=== PATIENT | male | born 1950 | race Caucasian/White ===

== ENCOUNTER → 2017-10-18 07:35 | Outpatient (CLI) | payer MEDICARE, OTHER, SELFPAY ==
--- NOTE | 2017-10-18 07:39 | US_ITS ---
ULTRASOUND ABDOMEN LIMITED HISTORY: Elevated liver enzymes ITS.REASON: ELEVATED LIVER ENZYMES ORDERING PHYSICIAN: Renee Cohen PATIENT AGE: 67 years COMPARISON: None FINDINGS: PANCREAS: Unremarkable. No obvious mass or abnormal fluid collection. No ductal dilatation LIVER: No focal liver lesions demonstrated. Homogeneous echogenicity. No intrahepatic biliary ductal dilatation evident RIGHT KIDNEY: No hydronephrosis. There is a 2 cm benign-appearing right renal cyst lung upper pole GALLBLADDER: No gallstones, gallbladder wall thickening, pericholecystic fluid, or biliary dilatation. IMPRESSION: Negative gallbladder/right upper quadrant ultrasound
== END ==
PROVIDERS: Family Provider Internal Medicine Adolescent Medicine; PCP Internal Medicine Adolescent Medicine; Visit Provider Nurse Practitioner Family
DX: R74.8 Abnormal levels of other serum enzymes (principal)
CPT/HCPCS: 76705

== ENCOUNTER → 2017-12-27 12:43 | Outpatient (CLI) | payer MEDICARE, OTHER, SELFPAY ==
--- NOTE | 2017-12-27 13:08 | US_ITS ---
US thyroid HISTORY: ITS.REASON: HYROIDITIS ORDERING PHYSICIAN: Kike Jasmine MD PATIENT AGE: 67 years COMPARISON: None FINDINGS: Right lobe: 3.3 x 1.3 x 2.1 cm. Homogeneous echogenicity. No nodules Left lobe: 3.3 x 1.1 x 1.3 cm. Homogeneous echogenicity. No nodules apparent Isthmus: Unremarkable IMPRESSION: Unremarkable thyroid ultrasound
== END ==
PROVIDERS: Family Provider Internal Medicine Adolescent Medicine; PCP Internal Medicine Adolescent Medicine; Visit Provider Internal Medicine Adolescent Medicine
DX: E06.3 Autoimmune thyroiditis (principal); E03.8 Other specified hypothyroidism
CPT/HCPCS: 76536

== ENCOUNTER 2019-01-05 01:21 | Observation (INO) ==
[2019-01-05 02:08] LABS: Basophils % 0.3 % (0.1-2.0); Eosinophils # 0.1 K/mm3 (0.0-0.4); Eosinophils % 0.9 % (0.1-12.0); Hematocrit 49.2 % (42.0-52.0); Hemoglobin 17.1 g/dL (14.1-18.0); Lymphocytes # 0.4 K/mm3 (0.7-4.5); Lymphocytes % 4.3 % (10-50); Mean Corpuscular HGB Conc 34.8 g/dL (31.8-35.4); Mean Corpuscular Hemoglobin 32.1 pg (27.0-31.2); Mean Corpuscular Volume 92.2 fl (80-94); Mean Platelet Volume 6.8 fl (7.4-10.4); Monocytes # 0.3 K/mm3 (0.1-1.0); Monocytes % 3.2 % (1.7-9.3); Neutrophils # 8.3 K/mm3 (1.8-7.8); Neutrophils % 91.3 % (37.0-80.0); Platelet Count 298 K/mm3 (142-424); Red Blood Count 5.34 M/mm3 (4.60-6.20); Red Cell Distribution Width 13.1 % (11.5-17.5); White Blood Count 9.1 K/mm3 (4.8-10.8)
--- NOTE | 2019-01-05 02:13 | Emergency Department Note ---
ED Disposition Clinical Impression: Vomiting, persistent, in adult, Renal insufficiency Disposition: Admitted as Observation Condition on Discharge: Fair Instructions: DI for Diarrhea and Traveler's Diarrhea -- Adult, DI for Diarrhea and Traveler's Diarrhea -- Child, DI for Nausea -- Adult, DI for Nausea -- Child Referrals: Renee Cohen APRN [Primary Care Provider] - - Critical Care Critical Care Time: No Attestation: On 01/05/19, the high probability of a clinically significant, sudden or life threatening deterioration of the following system(s) required my full and direct attention, intervention and personal management. The time I documented below is in addition to time spent performing reported procedures but includes the following listed in this critical care notation. Medical Decision Making - Medical Records Medical records reviewed: Yes: I reviewed the patient's medical records. - John Inquiry Pt receiving controlled substance: No Vital Signs: 01/05/19 01:43 Temperature 99.2 F Temperature Source Oral Pulse Rate [Right] 114 H Respiratory Rate 18 Blood Pressure [Right Arm] 135/84 Blood Pressure Mean [Right Arm] 101 Blood Pressure Source [Right Arm] Automatic Cuff Blood Pressure Position [Right Arm] Supine 02 Sat by Pulse Oximetry 94 L Oxygen Delivery Method Room Air - Lab Data Lab results reviewed: Yes: I reviewed the patient's lab results. Lab Results 01/05/19 01:30: WBC 9.1, RBC 5.34, Hgb 17.1, Hct 49.2, MCV 92.2, MCH 32.1 H, MCHC 34.8, RDW 13.1, Plt Count 298, MPV 6.8 L, Neut % (Auto) 91.3 H, Lymph % (Auto) 4.3 L, [place] % (Auto) 3.2, Eos % (Auto) 0.9, Baso % (Auto) 0.3, Neut # (Auto) 8.3 H, Lymph # (Auto) 0.4 L, [place] # (Auto) 0.3, Eos # (Auto) 0.1, Baso # (Auto) 0.0, Total Counted 100, Neutrophils % (Manual) 77 H, Band Neutrophils % 14.0 H, Lymphocytes % (Manual) 7 L, Eosinophils % (Manual) 2, Platelet Estimate Normal, RBC Morphology Normal, ESR 19 01/05/19 01:30: Sodium 140, Potassium 4.0, Chloride 103, Carbon Dioxide 23, Anion Gap 18.0 H, BUN 21 H, Creatinine 1.38 H, Estimated Creat Clear 55, Estimated GFR 51 L, Est GFR ( Amer) 62, Glucose 140 H, Calcium 8.6, Total Bilirubin 2.0 H, AST 28, ALT 35, Alkaline Phosphatase 89, C-Reactive Protein 4.0 H, Total Protein 7.7, Albumin 3.6, Globulin 4.1 H, Albumin/Globulin Ratio 0.9 L, Amylase 61, Lipase 113 01/05/19 01:30: Lactate 2.3 H 01/05/19 02:15: Influenza Type A Ag Negative, Influenza Type B Ag Negative 01/05/19 02:15: Group A Strep Rapid Negative Result diagrams: 01/05/19 01:30 01/05/19 01:30 Orders (Tests/Meds): ED MEDICATIONS Generic Name Dose Route Start Last Admin Trade Name Freq PRN Reason Stop Dose Admin Sodium Chloride 1,000 mls @ 999 mls/hr 01/05/19 02:00 01/05/19 02:00 Sod Chlor 0.9% 1000ml Bag IV 01/05/19 03:00 999 mls/hr .Q1H1M OUMOU Administration Sodium Chloride 1,000 mls @ 999 mls/hr 01/05/19 03:45 01/05/19 03:34 Sod Chlor 0.9% 1000ml Bag IV 01/05/19 04:45 999 mls/hr .Q1H1M OUMOU Administration Sodium Chloride 10 ml 01/05/19 01:51 Saline Flush 10ml Syringe IV 01/05/19 13:51 NEEDED PRN Maintain IV Site Discontinued Medications Generic Name Dose Route Start Last Admin Trade Name Freq PRN Reason Stop Dose Admin Famotidine 20 mg 01/05/19 02:23 01/05/19 02:31 Pepcid 20mg/2ml Vial IV 01/05/19 02:24 20 mg ONCE ONE Administration Metoclopramide HCl 10 mg 01/05/19 02:23 01/05/19 02:31 Reglan 10mg/2ml Vial IVP 01/05/19 02:24 10 mg ONCE ONE Administration Ondansetron HCl 4 mg 01/05/19 01:51 01/05/19 02:00 Zofran 4mg/2ml Vial IV 01/05/19 01:52 4 mg ONCE ONE Administration Ondansetron HCl 4 mg 01/05/19 02:32 01/05/19 02:33 Zofran 4mg/2ml Vial IV 01/05/19 02:33 4 mg ONCE ONE Administration ORDERS Category Date Time Status CT abdomen pelvis wo con Stat Cat Scan 01/05/19 01:49 Taken Urinalysis and Microscopic Stat Lab 01/05/19 01:49 Ordered Blood Culture Stat Micro 01/05/19 01:30 Received Strep Screen Confirmation Stat Micro 01/05/19 02:15 Received - CT Data CT Scan: Abdomen, Pelvis Time Received: 03:[address] Reviewed: Yes: I have viewed the radiologist's interpretation Preliminary Findings: Abnormal - Reevaluation(s) Time: 03:58 Reevaluation #1: still weak and unable to ambulate and still with nausea Nausea/Vomiting/Diarrhea HPI - General Chief complaint: Nausea/Vomiting/Diarrhea Stated complaint: Vomiting,Chills,Fever Time Seen by Provider: 01/05/19 02:13 Mode of Arrival: Ambulatory Source of Information: Patient, Spouse, Medical Record Limitations: No Limitations Description of Symptoms (Recalled from ER Triage Doc. by RN): Pt started vomiting and chills at about 2100 tonight - History of Present Illness HPI Narrative: since 2129 has chills and vomiting w/o diarrhea or cough and no known exposure MD complaint: nausea, vomiting, abdominal pain Onset (ago): hour(s) Associated Abdominal Pain: Yes Location of pain: diffuse Severity: moderate Associated symptoms: denies other symptoms - Related Data Home Medications Medication Instructions Recorded Confirmed Levothyroxine Sodium [Synthroid 75 mcg PO DAILY 01/05/19 01/05/19 75mcg (0.075mg) tablet] predniSONE [Prednisone 5mg 5 mg PO DAILY 01/05/19 01/05/19 Tab] Allergies Allergy/AdvReac Type Severity Reaction Status Date / Time tolmetin [From Tolectin] Allergy Unknown I-HIVES Verified 01/05/19 01:48 [facility] History - Hepatitis A Screen Drug use history?: No High risk sexual behaviors?: No History of sexually transmitted infection?: No Currently employed?: No Childcare worker?: No Do you have indoor plumbing?: Yes Do you have electricity?: Yes Attestation statement:: This patient has been screened for Hepatitis A risk factors. I have reviewed the patient's past medical history: Yes - Social History Alcohol Intake: current Alcohol Intake Frequency:: holidays/special occasions only Occupational Status: employed - Psychiatric History Expresses thoughts of harming self/others: None Suicide Plan Description: No Plan ROS Obtained: Yes All systems reviewed & no additional complaints - Constitutional Constitutional: Reports chills, Denies fever(s) - Eyes Eyes: Denies change in vision - ENT Ears, Nose, Mouth, and Throat: Denies sore throat - Cardiovascular Cardiovascular: Denies chest pain - Respiratory Respiratory: No cough - Gastrointestinal Gastrointestingal: Reports: abdominal pain, nausea, vomiting. Denies: diarrhea, vomiting blood - Genitourinary Male Genitourinary: Denies hematuria - Musculoskeletal Musculoskeletal: Denies joint pain, Denies neck pain - Integumentary/Breasts Skin/Breast: Denies rash - Neurologic Neurologic: Denies seizure-like activity Physical Exam - General General appearance: alert - Head Head exam: normocephalic - Eye Eye exam: Present: PERRL, EOMI. Absent: scleral icterus - ENT ENT exam: Present: mucous membranes dry - Neck Neck exam: Present: trachea midline - Respiratory Respiratory exam: Present: normal lung sounds bilaterally. Absent: respiratory distress - Cardiovascular Cardiovascular exam: Present: tachycardia, systolic murmur, +S4 - Abdominal Exam Abdominal exam: Present: soft. Absent: tenderness - Extremities Exam Extremities exam: Present: full ROM - Neurological Exam Neurological exam: Present: alert, oriented X3, CN II-XII intact - Psychiatric Psychiatric exam: Present: normal affect - Skin Skin exam: Absent: rash
[2019-01-05 02:23] LABS: Albumin Level 3.6 gm/dL (3.4-5.0); Albumin/Globulin Ratio 0.9 (1.1-1.8); Calcium 8.6 mg/dL (8.5-10.1); Eosinophils % 2 % (0-3); Globulin 4.1 gm/dl (1.3-3.2); Lymphocytes % 7 % (10-50); Neutrophils % 77 % (42-76); RBC Morphology Normal; Total Cells Counted 100; Total Protein,Serum 7.7 gm/dL (6.4-8.2)
[2019-01-05 02:54] LABS: Erythrocyte Sedimentation Rate 19 mm/hr (0-20)
[2019-01-05 04:38] LABS: Microscopic, Urine URINE MICROSCOPIC (MICROSCOPIC)
[2019-01-05 04:40] LABS: Appearance,Urine CLEAR (Clear); Bilirubin,Urine Negative (Negative); Blood, Urine Negative (Negative); Color,Urine YELLOW (Yellow); Glucose,Urine (UA) Negative (Negative); Ketones,Urine TRACE (Negative); Leukocyte Esterase,Urine Negative (Negative); Protein,Urine Negative (Negative); Specific Gravity, Urine 1.015 (1.005-1.030); Urobilinogen,Urine 0.2 EU/dl (0.2)
[2019-01-05 04:45] LABS: Amorphous Sediment,Urine Trace /lpf
[2019-01-05 05:53] LABS: Basophils % 0.2 % (0.1-2.0); Eosinophils # 0.1 K/mm3 (0.0-0.4); Eosinophils % 1.2 % (0.1-12.0); Hematocrit 43.6 % (42.0-52.0); Lymphocytes # 0.3 K/mm3 (0.7-4.5); Lymphocytes % 5.1 % (10-50); Mean Corpuscular HGB Conc 33.7 g/dL (31.8-35.4); Mean Corpuscular Hemoglobin 31.1 pg (27.0-31.2); Mean Corpuscular Volume 92.3 fl (80-94); Mean Platelet Volume 6.6 fl (7.4-10.4); Monocytes # 0.3 K/mm3 (0.1-1.0); Monocytes % 4.3 % (1.7-9.3); Neutrophils % 89.2 % (37.0-80.0); Platelet Count 246 K/mm3 (142-424); Red Blood Count 4.73 M/mm3 (4.60-6.20); Red Cell Distribution Width 13.2 % (11.5-17.5); White Blood Count 6.7 K/mm3 (4.8-10.8)
[2019-01-05 05:57] LABS: Hemoglobin 14.7 g/dL (14.1-18.0)
[2019-01-05 06:10] LABS: Anion Gap 13.7 mEq/L (5-15); Blood Urea Nitrogen 19 mg/dL (7-18); Calcium 7.9 mg/dL (8.5-10.1); Carbon Dioxide 24 mmol/L (21.0-32.0); Chloride 107 mmol/L (98-107); Potassium 3.7 mmoL/L (3.5-5.1); Sodium 141 mmol/L (136-145)
[2019-01-05 06:11] LABS: Glucose 104 mg/dL (74-106)
--- NOTE | 2019-01-05 08:45 | Pharmacy Consult Notes ---
[facility] Pharmacy VTE Monitoring - Patient Demographics Admission date: 01/05/19 Report Date: 01/05/19 Time: 08:44 Allergies/Adverse Reactions: Patient Allergies tolmetin [From Tolectin] Allergy (Unknown, Verified 01/05/19 04:37) I-HIVES Height: 1.73 m Weight: 79.124 kg Patient Problems: Current Active Problems Vomiting, persistent, in adult (Acute) Renal insufficiency (Acute) - VTE Risk Labs: VTE Related Lab Results Hgb 14.7 g/dL (14.1-18.0) D 01/05/19 05:40 Hct 43.6 % (42.0-52.0) 01/05/19 05:40 Plt Count 246 K/mm3 (142-424) 01/05/19 05:40 BUN 19 mg/dL (7-18) H 01/05/19 05:40 Creatinine 1.29 mg/dL (0.70-1.30) 01/05/19 05:40 Estimated Creat Clear 60 mL/min (50-200) 01/05/19 05:40 Was VTE Risk Assessment Performed: Yes VTE Score: 1 VTE Risk Level: Very Low Risk - Prophylaxis VTE Prophylaxis Ordered?: Yes Types of VTE Prophylaxis: TEDS Knee High ([place] ORDER PLACED)
--- NOTE | 2019-01-05 08:56 | H&P/Discharge Summary ---
General - General Admission date:: 01/05/19 Discharge date: 01/05/19 *Admission Date: 01/05/19 *Chief complaint: Nausea/vomiting *History of present illness: 68-year-old white male with significant arthritis who recently has been taking quite a lot of ibuprofen, while attending rheumatology clinic in [place], who came to the emergency department late yesterday evening with intractable vomiting. In spite of intravenous antiemetics and fluids he was unable to keep any liquids down and was admitted overnight for observation. [facility] History I have reviewed the patient's past medical history: Yes Medical History: Denies:: Cancer, Diabetes Mellitus Type 1, Diabetes Mellitus Type 2, MRSA *Have you ever received a pneumonia vaccine?: No *Have you received a flu vaccine this season?: No Other Medical History: Reports: Arthritis, Thyroid Disease Other Surgeries: Yes: Sinus Surgery Amputation: No Fractures: No - *Social History Educational Level: Attended College Alcohol Intake: current Alcohol Intake Frequency:: holidays/special occasions only *Occupational Status:: employed Household Members: spouse *Travel in the last 8 weeks: None - Psychiatric History Expresses thoughts of harming self/others: None Suicide Plan Description: No Plan Family Hx:: Coronary Artery Disease, Diabetes, Heart Attack, Hyperlipidemia, Hypertension Review of Systems - Review of Systems Review of systems:: pertinent systems reviewed and negative unless documented below - Constitutional Reports body ache(s), Denies anorexia, Denies chills - Eyes Denies blind spots, Denies blurry vision - ENT Denies abnormal hearing, Denies bleeding gums, Denies change in voice - *Cardiovascular Denies chest pain, Denies chest pain at rest, Denies chest pain with activity, Denies excessive sweating, Denies shortness of breath - *Respiratory Denies change in phlegm color, Denies chest congestion, Denies cough, Denies shortness of breath - *Gastrointestinal Reports nausea, Reports vomiting, Denies abdominal pain, Denies belching, Denies bloating, Denies change in bowel habits, Denies change in stools, Denies coffee ground vomit, Denies constipation, Denies difficulty swallowing, Denies feeling full early, Denies excessive passing of gas, Denies vomiting blood, Denies bright, red blood in stools, Denies black, tarry stools - *Genitourinary Denies difficulty urinating - *Musculoskeletal Reports joint pain, Denies abnormal walking, Denies decreased muscle mass - Integumentary/Breasts Denies acne, Denies hair loss, Denies change in skin color, Denies changing lesions - *Neurologic Denies abnormal walking, Denies seizure-like activity - Psychiatric Denies abnormal sleep pattern - Endocrine Denies cold intolerance, Denies excessive sweating, Denies flushing Exam Vital signs and Labs for Last 24 Hours: Temp Pulse Resp BP Pulse Ox 98.0 F 75 18 120/63 95 01/05/19 08:00 01/05/19 08:00 01/05/19 08:00 01/05/19 08:00 01/05/19 08:00 Laboratory Results - last 24 hr 01/05/19 01:30: WBC 9.1, RBC 5.34, Hgb 17.1, Hct 49.2, MCV 92.2, MCH 32.1 H, MCHC 34.8, RDW 13.1, Plt Count 298, MPV 6.8 L, Neut % (Auto) 91.3 H, Lymph % (Auto) 4.3 L, [place] % (Auto) 3.2, Eos % (Auto) 0.9, Baso % (Auto) 0.3, Neut # (Auto) 8.3 H, Lymph # (Auto) 0.4 L, [place] # (Auto) 0.3, Eos # (Auto) 0.1, Baso # (Auto) 0.0, Total Counted 100, Neutrophils % (Manual) 77 H, Band Neutrophils % 14.0 H, Lymphocytes % (Manual) 7 L, Eosinophils % (Manual) 2, Platelet Estimate Normal, RBC Morphology Normal, ESR 19 01/05/19 01:30: Sodium 140, Potassium 4.0, Chloride 103, Carbon Dioxide 23, Anion Gap 18.0 H, BUN 21 H, Creatinine 1.38 H, Estimated Creat Clear 55, Estimated GFR 51 L, Est GFR ( Amer) 62, Glucose 140 H, Calcium 8.6, Total Bilirubin 2.0 H, AST 28, ALT 35, Alkaline Phosphatase 89, C-Reactive Protein 4.0 H, Total Protein 7.7, Albumin 3.6, Globulin 4.1 H, Albumin/Globulin Ratio 0.9 L, Amylase 61, Lipase 113 01/05/19 01:30: Lactate 2.3 H 01/05/19 02:15: Influenza Type A Ag Negative, Influenza Type B Ag Negative 01/05/19 02:15: Group A Strep Rapid Negative 01/05/19 04:27: Urine Color Yellow, Urine Appearance Clear, Urine pH 7.0, Ur Specific [place] 1.015, Urine Protein Negative, Urine Glucose (UA) Negative, Urine Ketones Trace, Urine Blood Negative, Urine Nitrate Negative, Urine Bilirubin Negative, Urine Urobilinogen 0.2, Ur Leukocyte Esterase Negative, U rine WBC 3-5, Amorphous Sediment Trace 01/05/19 05:40: WBC 6.7 D, RBC 4.73, Hgb 14.7 D, Hct 43.6, MCV 92.3, MCH 31.1, MCHC 33.7, RDW 13.2, Plt Count 246, MPV 6.6 L, Neut % (Auto) 89.2 H, Lymph % (Auto) 5.1 L, [place] % (Auto) 4.3, Eos % (Auto) 1.2, Baso % (Auto) 0.2, Neut # ( Auto) 6.0, Lymph # (Auto) 0.3 L, [place] # (Auto) 0.3, Eos # (Auto) 0.1, Baso # (Auto) 0.0 01/05/19 05:40: Sodium 141, Potassium 3.7, Chloride 107, Carbon Dioxide 24, Anion Gap 13.7, BUN 19 H, Creatinine 1.29, Estimated Creat Clear 60, Estimated GFR 55 L, Est GFR ( Amer) 67, Glucose 104 D, Calcium 7.9 L, Troponin I < 0.02 01/05/19 05:40: Lactate 1.1 I & O for Last 24 hours: Intake & Output 01/02/19 01/03/19 01/04/19 01/05/19 11:59 11:59 11:59 11:59 Intake Total 1999 Balance 1999 Weight 174 lb 7 oz - Constitutional no acute distress, average body habitus - *Routine HEENT Exam Head: Present: normocephalic, atraumatic Eye: Present: EOMI, PERRL, conjunctivae pink ENT: Present: mucous membranes moist, oropharynx clear - *Routine Neck Exam Present: supple, full ROM. Absent: JVD, carotid bruit - Routine Chest/Breast/Axilla Exam Chest wall: Absent: tenderness, mass - *Routine Respiratory Exam Present: CTA bilaterally. Absent: accessory muscle use, patient mechanically ventilated, prolonged expiratory phase - *Routine Cardiovascular Exam Present: RRR, Normal S1, Normal S2. Absent: murmur - *Routine Abdominal Exam Present: soft, normoactive bowel sounds. Absent: tenderness, distended - *Routine Extremities Exam Present: full ROM. Absent: cyanosis, clubbing, edema - Routine Back/Spine/Pelvis Exam Back/Spine: Absent: CVA tenderness - *Routine Skin Exam Present: intact. Absent: cyanosis, erythema - *Routine Neurological Exam Present: alert, oriented X3, CN II-XII intact Hospital Course Hospital Course: Patient was admitted observation, placed on IV fluids and antiemetics through the night. He did very nicely, this morning felt much better, and was given a trial of clear liquids advancing to low-fat diet and tolerated this well. He will be discharged home with p.o. antiemetics available if he has any residual problems what appears to be a gastritis/gastroenteritis problem, prescribe Celebrex hopefully to help his osteoarthritis pain without the stomach irritation of ibuprofen. He will follow-up with our office as scheduled and with rheumatology as scheduled as well. Results Labs on day of discharge: Labs from last 24 hours 01/05/19 01/05/19 01/05/19 05:40 05:40 05:40 WBC 6.7 D RBC 4.73 Hgb 14.7 D Hct 43.6 MCV 92.3 MCH 31.1 MCHC 33.7 RDW 13.2 Plt Count 246 MPV 6.6 L Neut % (Auto) 89.2 H Lymph % (Auto) 5.1 L [place] % (Auto) 4.3 Eos % (Auto) 1.2 Baso % (Auto) 0.2 Neut # (Auto) 6.0 Lymph # (Auto) 0.3 L [place] # (Auto) 0.3 Eos # (Auto) 0.1 Baso # (Auto) 0.0 Total Counted Neutrophils % (Manual) Band Neutrophils % Lymphocytes % (Manual) Eosinophils % (Manual) Platelet Estimate RBC Morphology ESR Sodium 141 Potassium 3.7 Chloride 107 Carbon Dioxide 24 Anion Gap 13.7 BUN 19 H Creatinine 1.29 Estimated Creat Clear 60 Estimated GFR 55 L Est GFR ( Amer) 67 Glucose 104 D Lactate 1.1 Calcium 7.9 L Total Bilirubin AST ALT Alkaline Phosphatase Troponin I < 0.02 C-Reactive Protein Total Protein Albumin Globulin Albumin/Globulin Ratio Amylase Lipase Urine Color Urine Appearance Urine pH Ur Specific [place] Urine Protein Urine Glucose (UA) Urine Ketones Urine Blood Urine Nitrate Urine Bilirubin Urine Urobilinogen Ur Leukocyte Esterase Urine WBC Amorphous Sediment Influenza Type A Ag Influenza Type B Ag Group A Strep Rapid 01/05/19 01/05/19 01/05/19 04:27 02:15 02:15 WBC RBC Hgb Hct MCV MCH MCHC RDW Plt Count MPV Neut % (Auto) Lymph % (Auto) [place] % (Auto) Eos % (Auto) Baso % (Auto) Neut # (Auto) Lymph # (Auto) [place] # (Auto) Eos # (Auto) Baso # (Auto) Total Counted Neutrophils % (Manual) Band Neutrophils % Lymphocytes % (Manual) Eosinophils % (Manual) Platelet Estimate RBC Morphology ESR Sodium Potassium Chloride Carbon Dioxide Anion Gap BUN Creatinine Estimated Creat Clear Estimated GFR Est GFR ( Amer) Glucose Lactate Calcium Total Bilirubin AST ALT Alkaline Phosphatase Troponin I C-Reactive Protein Total Protein Albumin Globulin Albumin/Globulin Ratio Amylase Lipase Urine Color Yellow Urine Appearance Clear Urine pH 7.0 Ur Specific [place] 1.015 Urine Protein Negative Urine Glucose (UA) Negative Urine Ketones Trace Urine Blood Negative Urine Nitrate Negative Urine Bilirubin Negative Urine Urobilinogen 0.2 Ur Leukocyte Esterase Negative Urine WBC 3-5 Amorphous Sediment Trace Influenza Type A Ag Negative Influenza Type B Ag Negative Group A Strep Rapid Negative 01/05/19 01/05/19 01/05/19 01:30 01:30 01:30 WBC 9.1 RBC 5.34 Hgb 17.1 Hct 49.2 MCV 92.2 MCH 32.1 H MCHC 34.8 RDW 13.1 Plt Count 298 MPV 6.8 L Neut % (Auto) 91.3 H Lymph % (Auto) 4.3 L [place] % (Auto) 3.2 Eos % (Auto) 0.9 Baso % (Auto) 0.3 Neut # (Auto) 8.3 H Lymph # (Auto) 0.4 L [place] # (Auto) 0.3 Eos # (Auto) 0.1 Baso # (Auto) 0.0 Total Counted 100 Neutrophils % (Manual) 77 H Band Neutrophils % 14.0 H Lymphocytes % (Manual) 7 L Eosinophils % (Manual) 2 Platelet Estimate Normal RBC Morphology Normal ESR 19 Sodium 140 Potassium 4.0 Chloride 103 Carbon Dioxide 23 Anion Gap 18.0 H BUN 21 H Creatinine 1.38 H Estimated Creat Clear 55 Estimated GFR 51 L Est GFR ( Amer) 62 Glucose 140 H Lactate 2.3 H Calcium 8.6 Total Bilirubin 2.0 H AST 28 ALT 35 Alkaline Phosphatase 89 Troponin I C-Reactive Protein 4.0 H Total Protein 7.7 Albumin 3.6 Globulin 4.1 H Albumin/Globulin Ratio 0.9 L Amylase 61 Lipase 113 Urine Color Urine Appearance Urine pH Ur Specific [place] Urine Protein Urine Glucose (UA) Urine Ketones Urine Blood Urine Nitrate Urine Bilirubin Urine Urobilinogen Ur Leukocyte Esterase Urine WBC Amorphous Sediment Influenza Type A Ag Influenza Type B Ag Group A Strep Rapid DS: Diagnosis - Discharge Diagnosis (1) Renal insufficiency Status: Resolved (2) Vomiting, persistent, in adult Status: Resolved Discharge Medications - Medications for Discharge Home Medication List at Discharge: New Celecoxib [Celebrex 200mg cap] 200 mg PO BID #60 cap Promethazine HCl [Phenergan 12.5mg tablet] 12.5 mg PO Q6H PRN #12 tab PRN Reason: Nausea Continue predniSONE [Prednisone 5mg Tab] 5 mg PO DAILY Levothyroxine Sodium [Synthroid 75mcg (0.075mg) tablet] 75 mcg PO DAILY raNITIdine HCl [Zantac 150mg] 150 mg PO DAILY Discontinued Ibuprofen [Ibuprofen 600mg Tablet] 600 mg PO DAILY
== END 2019-01-05 09:05 | disposition home or self-care (01) ==
LOC: 2ND 01:21 → ER 01:21 → 2ND 04:31
PROVIDERS: ADMIT Emergency Medicine; ATTEND Internal Medicine Adolescent Medicine
CPT/HCPCS: 36415; 74176; 80048; 80053; 81001; 82150; 83605; 83690; 84484; 85007; 85025; 85651; 86140; 87040; 87275; 87276; 87430; 96365; 96366; 96375; 96376; 99285; G0378; J2405

== ENCOUNTER 2019-05-05 14:56 | Inpatient (IN) ==
[2019-05-05 17:28] LABS: Basophils # 0.1 K/mm3 (0-0.2); Basophils % 0.9 % (0.1-2.0); Eosinophils # 0.4 K/mm3 (0.0-0.4); Eosinophils % 4.1 % (0.1-12.0); Hemoglobin 13.2 g/dL (14.1-18.0); Lymphocytes # 1.7 K/mm3 (0.7-4.5); Lymphocytes % 19.1 % (10-50); Mean Corpuscular HGB Conc 32.1 g/dL (31.8-35.4); Mean Corpuscular Volume 99.8 fl (80-94); Mean Platelet Volume 7.3 fl (7.4-10.4); Monocytes # 0.5 K/mm3 (0.1-1.0); Monocytes % 5.8 % (1.7-9.3); Neutrophils # 6.2 K/mm3 (1.8-7.8); Neutrophils % 70.2 % (37.0-80.0); Platelet Count 366 K/mm3 (142-424); Red Blood Count 4.11 M/mm3 (4.60-6.20); Red Cell Distribution Width 14.5 % (11.5-17.5); White Blood Count 8.8 K/mm3 (4.8-10.8)
[2019-05-05 17:35] LABS: Anion Gap 13.7 mEq/L (5-15); C-Reactive Protein 8.2 mg/L (0.0-0.9); Calcium 9.1 mg/dL (8.5-10.1)
[2019-05-05 20:41] LABS: Coronavirus 229E Not Detected (NotDetected); Coronavirus NL63 Not Detected (NotDetected); Coronavirus OC43 Not Detected (NotDetected); Coronovirus HKU1,PCR Not Detected (NotDetected)
[2019-05-05 21:43] LABS: ABG HCO3 23.7 mmhg (22.0-26.0); ABG Oxygen Saturation 88 % (90-100); ABG PCO2 33.6 mmhg (35.0-45.0); ABG PH 7.47 mmol/L (7.35-7.45); ABG PO2 51.9 mmhg (80-100); ABG TCO2 24.8 mmhg (23-27)
[2019-05-05 21:46] LABS: Allen's Test Acceptable; Oxygen room air %
[2019-05-06 07:01] LABS: Basophils # 0.1 K/mm3 (0-0.2); Basophils % 0.9 % (0.1-2.0); Eosinophils # 0.4 K/mm3 (0.0-0.4); Eosinophils % 4.6 % (0.1-12.0); Hematocrit 38.4 % (42.0-52.0); Hemoglobin 12.2 g/dL (14.1-18.0); Lymphocytes # 1.7 K/mm3 (0.7-4.5); Lymphocytes % 21.2 % (10-50); Mean Corpuscular HGB Conc 31.8 g/dL (31.8-35.4); Mean Corpuscular Volume 98.2 fl (80-94); Mean Platelet Volume 7.1 fl (7.4-10.4); Monocytes # 0.6 K/mm3 (0.1-1.0); Monocytes % 7.4 % (1.7-9.3); Neutrophils # 5.4 K/mm3 (1.8-7.8); Neutrophils % 65.9 % (37.0-80.0); Platelet Count 364 K/mm3 (142-424); Red Blood Count 3.91 M/mm3 (4.60-6.20); Red Cell Distribution Width 14.6 % (11.5-17.5); White Blood Count 8.1 K/mm3 (4.8-10.8)
[2019-05-06 07:15] LABS: Albumin Level 2.8 gm/dL (3.4-5.0); Albumin/Globulin Ratio 0.8 (1.1-1.8); Anion Gap 14.6 mEq/L (5-15); Bilirubin,Total 1.5 mg/dL (0.2-1.0); Calcium 9.1 mg/dL (8.5-10.1); Globulin 3.4 gm/dl (1.3-3.2); Total Protein,Serum 6.2 gm/dL (6.4-8.2)
--- NOTE | 2019-05-06 08:29 | Pharmacy Consult Notes ---
[facility] Pharmacy VTE Monitoring - Patient Demographics Admission date: 05/06/19 Report Date: 05/06/19 Time: 08:29 Allergies/Adverse Reactions: Patient Allergies tolmetin [From Tolectin] Allergy (Unknown, Verified 01/05/19 04:37) I-HIVES methotrexate Adverse Reaction (Verified 05/02/19 07:44) Height: 1.73 m Weight: 77.111 kg - VTE Risk Labs: VTE Related Lab Results Hgb 12.2 g/dL (14.1-18.0) L 05/06/19 06:11 Hct 38.4 % (42.0-52.0) L 05/06/19 06:11 Plt Count 364 K/mm3 (142-424) 05/06/19 06:11 BUN 9 mg/dL (7-18) 05/06/19 06:11 Creatinine 1.42 mg/dL (0.70-1.30) H D 05/06/19 06:11 Estimated Creat Clear 52 mL/min (50-200) 05/06/19 06:11 Was VTE Risk Assessment Performed: No VTE Score: 1 VTE Risk Level: Very Low Risk Clinical Trial Participant: No - Prophylaxis VTE Prophylaxis Ordered?: Yes Types of VTE Prophylaxis: TEDS Knee High Location of Applied Device: Bilateral Lower Extremeties
--- NOTE | 2019-05-06 11:01 | Progress Note ---
Internal Medicine - PN: Subj *Date: 05/06/19 *Time: 18:00 Interval history: Patient did well overnight. States he is breathing a little bit more comfortably however still gets dyspneic with exertion. Denies any chest pain, fevers, nausea vomiting, diarrhea. Tolerating p.o. intake well. Exam Vital signs and Labs for Last 24 Hours: Temp Pulse Resp BP Pulse Ox 97.9 F 74 20 121/73 92 L 05/06/19 08:00 05/06/19 08:00 05/06/19 08:00 05/06/19 08:00 05/06/19 08:00 Laboratory Results - last 24 hr 05/05/19 15:37: Specimen Source Right radial, O2 % room air, ABG pH 7.47 H, ABG pCO2 33.6 L, ABG pO2 51.9 L, ABG HCO3 23.7, ABG Total CO2 24.8, ABG O2 Saturation 88 L, ABG Base Excess 0.0, Geo Test Acceptable 05/05/19 17:05: WBC 8.8, RBC 4.11 L, Hgb 13.2 L, Hct 41.0 L, MCV 99.8 H, MCH 32.1 H, MCHC 32.1, RDW 14.5, Plt Count 366, MPV 7.3 L, Neut % (Auto) 70.2, Lymph % (Auto) 19.1, [place] % (Auto) 5.8, Eos % (Auto) 4.1, Baso % (Auto) 0.9, Neut # (Auto) 6.2, Lymph # (Auto) 1.7, [place] # (Auto) 0.5, Eos # (Auto) 0.4, Baso # (Auto) 0.1 05/05/19 17:05: Sodium 138, Potassium 3.7, Chloride 103, Carbon Dioxide 25, Anion Gap 13.7, BUN 10, Creatinine 1.14, Estimated Creat Clear 64, Estimated GFR 63, Est GFR ( Amer) 77, Glucose 85, Calcium 9.1, C-Reactive Protein 8.2 H 05/05/19 17:05: Influenza Type A Ag Negative, Influenza Type B Ag Negative 05/05/19 17:05: Mycoplasma pneumon IgM Non-reactive 05/05/19 17:05: ESR 121 H 05/05/19 17:05: D-Dimer 523 H* 05/05/19 20:30: Chlamy pneumoniae PCR Not detected, Adenovirus (PCR) Not detected, B. pertussis DNA (PCR) Not detected, Coronavirus OC43 (PCR) Not detected, Coronavirus HKU1 (PCR) Not detected, Coronavirus 229E (PCR) Not detected, Coronavirus NL63 (PCR) Not detected, Human Metapneumovir PCR Not detected, Influenza A (H1) PCR Not detected, Influ A (H1N1/09) PCR Not detected, Influenza A (H3) PCR Not detected, Influenza Type A (PCR) Not detected, Influenza Type B (PCR) Not detected, M. pneumoniae (PCR) Not detected, Parainfluenza 1 (PCR) Not detected, Parainfluenza 2 (PCR) Not detected, Parainfluenza 3 (PCR) Not detected, Parainfluenza 4 (PCR) Not detected, RSV (PCR) Not detected, Entero/Rhino (PCR) Not detected 05/06/19 06:11: WBC 8.1, RBC 3.91 L, Hgb 12.2 L, Hct 38.4 L, MCV 98.2 H, MCH 31.2, MCHC 31.8, RDW 14.6, Plt Count 364, MPV 7.1 L, Neut % (Auto) 65.9, Lymph % (Auto) 21.2, [place] % (Auto) 7.4, Eos % (Auto) 4.6, Baso % (Auto) 0.9, Neut # (Auto) 5.4, Lymph # (Auto) 1.7, [place] # (Auto) 0.6, Eos # (Auto) 0.4, Baso # (Auto) 0.1 05/06/19 06:11: Sodium 139, Potassium 3.6, Chloride 104, Carbon Dioxide 24, Anion Gap 14.6, BUN 9, Creatinine 1.42 H D, Estimated Creat Clear 52, Estimated GFR 49 L, Est GFR ( Amer) 59 D, Glucose 100, Calcium 9.1, Total Bilirubin 1.5 H, AST 75 H, ALT 111 H, Alkaline Phosphatase 97, Total Protein 6.2 L, Albumin 2.8 L, Globulin 3.4 H, Albumin/Globulin Ratio 0.8 L I & O for Last 24 hours: Intake & Output 05/03/19 05/04/19 05/05/19 05/06/19 23:59 23:59 23:59 23:59 Intake Total 240 / 240 1127 / 1127 Balance 240 / 240 1127 / 1127 Weight 76.43 kg 77.111 kg Microbiology Reports for the Last 24 Hours: Microbiology 05/05/19 21:15 Sputum - Expectorated Sputum Gram Stain - Final - *Routine HEENT Exam Head: Present: normocephalic Eye: Present: EOMI, PERRL ENT: Present: mucous membranes moist - *Routine Neck Exam Present: supple. Absent: lymphadenopathy - *Routine Respiratory Exam Present: crackles (Most prominent in right posterior lung field, minimal in left base). Absent: respiratory distress, rhonchi, wheezes - *Routine Cardiovascular Exam Present: RRR - *Routine Abdominal Exam Present: soft, normoactive bowel sounds. Absent: tenderness - *Routine Extremities Exam Absent: cyanosis, clubbing, edema Assessment and Plan (1) Immunodeficiency Current visit: Yes Status: Chronic Category: Medical Code(s): D84.9 - Immunodeficiency, unspecified Due to persistent steroids for the past 3 months, autoimmune disorder, and methotrexate. (2) CAP (community acquired pneumonia) Current visit: No Status: Acute Qualifiers: Laterality: unspecified laterality Qualified Code(s): J18.9 - Pneumonia, unspecified organism Category: Medical Code(s): J18.9 - Pneumonia, unspecified organism Failed outpatient therapy. Initiated on Zosyn during admission with slight improvement. Given patient's chronic steroid use for 3 months, minimal improvement the past 24 hours, will initiate coverage with Bactrim in the setting of potential risk for PCP pneumonia. CT scan concerning for findings that could be consistent with PCP. Letter for improvement over the next 24-48 hrs. supplement oxygen as needed for goal sats greater than 92 while awake and greater than 88 while asleep (3) Renal insufficiency Current visit: No Status: Resolved Category: Medical Code(s): N28.9 - Disorder of kidney and ureter, unspecified - Assessment and plan all Dx Assessment and Plan for all problems:: Minimal improvement. Continues to require inpatient management. And as above.
[2019-05-07 08:07] LABS: Basophils # 0.1 K/mm3 (0-0.2); Eosinophils # 0.4 K/mm3 (0.0-0.4); Eosinophils % 5.3 % (0.1-12.0); Hematocrit 39.4 % (42.0-52.0); Hemoglobin 12.8 g/dL (14.1-18.0); Lymphocytes # 1.7 K/mm3 (0.7-4.5); Mean Corpuscular HGB Conc 32.5 g/dL (31.8-35.4); Mean Corpuscular Volume 97.2 fl (80-94); Mean Platelet Volume 7.1 fl (7.4-10.4); Monocytes # 0.5 K/mm3 (0.1-1.0); Monocytes % 6.1 % (1.7-9.3); Neutrophils # 5.2 K/mm3 (1.8-7.8); Neutrophils % 65.5 % (37.0-80.0); Platelet Count 439 K/mm3 (142-424); Red Blood Count 4.05 M/mm3 (4.60-6.20); Red Cell Distribution Width 14.9 % (11.5-17.5); White Blood Count 7.9 K/mm3 (4.8-10.8)
--- NOTE | 2019-05-07 08:07 | Progress Note ---
Internal Medicine - PN: Subj *Date: 05/07/19 *Time: 08:05 Interval history: Patient overnight feels better, reports less shortness of air but does not think he is able to go home because of his continued severe dyspnea with going to the bathroom and other very mild activities of daily living. He continues to have a cough that is minimally productive of sputum. Exam Vital signs and Labs for Last 24 Hours: Temp Pulse Resp BP Pulse Ox 97.9 F 60 18 121/58 L 95 05/07/19 04:00 05/07/19 04:00 05/07/19 04:00 05/07/19 04:00 05/07/19 04:00 I & O for Last 24 hours: Intake & Output 05/04/19 05/05/19 05/06/19 05/07/19 11:59 11:59 11:59 11:59 Intake Total 1367 / 1367 1943 / 1943 Balance 1367 / 1367 194 / 1943 Weight 170 lb Microbiology Reports for the Last 24 Hours: Microbiology 05/05/19 21:15 Sputum - Expectorated Sputum Gram Stain - Final 05/05/19 21:15 Sputum - Expectorated Sputum Sputum Culture - Preliminary Narrative: Alert, pleasant, oriented x3. No JVD. Abdomen soft, no ankle edema. No rash. Lungs have lower than his baseline air movement but are clear bilaterally. Heart rate regular. No murmurs. Assessment and Plan (1) Immunodeficiency Current visit: Yes Status: Chronic Category: Medical Code(s): D84.9 - Immunodeficiency, unspecified (2) CAP (community acquired pneumonia) Current visit: No Status: Acute Qualifiers: Laterality: unspecified laterality Qualified Code(s): J18.9 - Pneumonia, unspecified organism Category: Medical Code(s): J18.9 - Pneumonia, unspecified organism (3) Renal insufficiency Current visit: No Status: Resolved Category: Medical Code(s): N28.9 - Disorder of kidney and ureter, unspecified - Assessment and plan all Dx Assessment and Plan for all problems:: Agree with continued expanded antibiotic coverage. Await culture results. Creatinine is slightly elevated. Recheck this today and tomorrow. Continue oxygen support. Echocardiogram because of dyspnea and cough to make sure were not dealing with a cardiac cause although this seems to be atypical pulmonary infection.
[2019-05-07 08:13] LABS: Anion Gap 12.4 mEq/L (5-15); Calcium 8.8 mg/dL (8.5-10.1)
[2019-05-08 06:38] LABS: Basophils # 0.1 K/mm3 (0-0.2); Basophils % 1.3 % (0.1-2.0); Eosinophils # 0.5 K/mm3 (0.0-0.4); Eosinophils % 7.4 % (0.1-12.0); Hemoglobin 11.8 g/dL (14.1-18.0); Lymphocytes # 1.8 K/mm3 (0.7-4.5); Lymphocytes % 26.3 % (10-50); Mean Corpuscular HGB Conc 32.7 g/dL (31.8-35.4); Mean Corpuscular Volume 97.6 fl (80-94); Mean Platelet Volume 6.9 fl (7.4-10.4); Monocytes # 0.5 K/mm3 (0.1-1.0); Monocytes % 7.2 % (1.7-9.3); Neutrophils % 57.9 % (37.0-80.0); Platelet Count 370 K/mm3 (142-424); Red Blood Count 3.69 M/mm3 (4.60-6.20); Red Cell Distribution Width 14.6 % (11.5-17.5)
[2019-05-08 06:49] LABS: Albumin Level 2.6 gm/dL (3.4-5.0); Albumin/Globulin Ratio 0.8 (1.1-1.8); Anion Gap 13.6 mEq/L (5-15); Bilirubin,Total 1.1 mg/dL (0.2-1.0); Calcium 8.7 mg/dL (8.5-10.1); Globulin 3.3 gm/dl (1.3-3.2); Total Protein,Serum 5.9 gm/dL (6.4-8.2)
--- NOTE | 2019-05-08 07:23 | Discharge Summary ---
General - General Admission date:: 05/05/19 Discharge date: 05/08/19 HPI HPI: 69-year-old white male with history of rheumatoid arthritis. Recently on methotrexate and prednisone but over the past couple of weeks has been afflicted with respiratory problems including coughing, congestion and pulmonary infiltrates. Came to my office on the day of admission, hypoxic, slightly tachycardic and admitted to hospital. Please see dictated H&P scanned into the hospital system for details. Hospital Course Hospital Course: Patient was admitted, placed on broad-spectrum antibiotics given his previous failure of outpatient antibiotics. Azithromycin was added because of the high likelihood of recurrent atypical pneumonitis. Sputum and blood cultures have been nondiagnostic. Viral PCR also negative. Mycoplasma titers negative and Legionella antigen testing negative. Patient improved slowly, his oxygen requirement improved and this morning he was feeling much better able to tolerate room air with no problems and had less dyspnea although he was still dyspneic over his baseline. Lung exam had improved. He will be discharged home on Augmentin and azithromycin therapy with close follow-up in my office. Objective Vital signs: Temp Pulse Resp BP Pulse Ox 98.9 F 97 H 17 123/64 90 L 05/08/19 04:00 05/08/19 04:00 05/08/19 04:00 05/08/19 04:00 05/08/19 04:00 Narrative: Patient is pleasant, talkative. Sitting on the side of the bed eating breakfast. O2 saturations on room air 93%. Lungs have a little better air entry. Minimal crackles in the bases. Heart rate regular. Abdomen soft, no edema or clubbing. Neurologic exam intact. ENT exam clear. No JVD. Results Labs on day of discharge: Labs from last 24 hours 05/08/19 05/08/19 05/07/19 06:00 06:00 08:00 WBC 7.0 RBC 3.69 L Hgb 11.8 L Hct 36.0 L MCV 97.6 H MCH 31.9 H MCHC 32.7 RDW 14.6 Plt Count 370 MPV 6.9 L Neut % (Auto) 57.9 Lymph % (Auto) 26.3 [place] % (Auto) 7.2 Eos % (Auto) 7.4 Baso % (Auto) 1.3 Neut # (Auto) 4.0 Lymph # (Auto) 1.8 [place] # (Auto) 0.5 Eos # (Auto) 0.5 H Baso # (Auto) 0.1 Sodium 140 137 Potassium 3.6 3.4 L Chloride 105 104 Carbon Dioxide 25 24 Anion Gap 13.6 12.4 BUN 7 8 Creatinine 1.31 H 1.32 H Estimated Creat Clear 58 56 Estimated GFR 54 L 53 L Est GFR ( Amer) 65 65 Glucose 91 D 145 H Calcium 8.7 8.8 Total Bilirubin 1.1 H AST 38 H D ALT 80 H D Alkaline Phosphatase 77 Total Protein 5.9 L Albumin 2.6 L Globulin 3.3 H Albumin/Globulin Ratio 0.8 L 05/07/19 08:00 WBC 7.9 RBC 4.05 L Hgb 12.8 L Hct 39.4 L MCV 97.2 H MCH 31.6 H MCHC 32.5 RDW 14.9 Plt Count 439 H MPV 7.1 L Neut % (Auto) 65.5 Lymph % (Auto) 22.0 [place] % (Auto) 6.1 Eos % (Auto) 5.3 Baso % (Auto) 1.0 Neut # (Auto) 5.2 Lymph # (Auto) 1.7 [place] # (Auto) 0.5 Eos # (Auto) 0.4 Baso # (Auto) 0.1 Sodium Potassium Chloride Carbon Dioxide Anion Gap BUN Creatinine Estimated Creat Clear Estimated GFR Est GFR ( Amer) Glucose Calcium Total Bilirubin AST ALT Alkaline Phosphatase Total Protein Albumin Globulin Albumin/Globulin Ratio Preliminary micro results at discharge 05/05/19 17:30 Blood Culture - Preliminary Blood NO GROWTH AFTER 48 HOURS 05/05/19 17:05 Blood Culture - Preliminary Blood NO GROWTH AFTER 48 HOURS 05/05/19 21:15 Sputum Culture - Preliminary Sputum - Expectorated Sputum DS: Diagnosis - Discharge Diagnosis (1) Immunodeficiency Status: Chronic (2) CAP (community acquired pneumonia) Status: Acute (3) Renal insufficiency Status: Resolved (4) Hypoxia Status: Resolved Discharge Plan - Patient Discharge Instructions ACTIVITY: Continue current activity DIET: continue same diet Patient Instructions: DI for Pneumonia -- Adult - Follow up Plan Follow up with: Kike Jasmine MD [Primary Care Provider] - 05/10/19 Disposition: Home, Self-Snf Medications: Home Medications Medication Instructions Recorded Confirmed Type Albuterol Sulfate [Proventil-HFA 1 - 2 puffs IH Q6HP PRN 05/05/19 05/05/19 History 90mcg/puff Inh] Amoxicillin/Potassium Clav 1 tab PO Q12H 05/05/19 05/05/19 History [Augmentin 875-125 Tablet] Azithromycin [Zithromax 250mg 250 mg PO DIRECTED 05/05/19 05/05/19 History tab] Azithromycin [Zithromax 250mg 250 mg PO DIRECTED #6 tab 05/08/19 Rx tab] Cefdinir [Omnicef 300mg Capsule] 300 mg PO BID #14 cap 05/08/19 Rx Prescriptions/Medication Reconciliation: New Azithromycin [Zithromax 250mg tab] 250 mg PO DIRECTED #6 tab Cefdinir [Omnicef 300mg Capsule] 300 mg PO BID #14 cap Continued Albuterol Sulfate [Proventil-HFA 90mcg/puff Inh] 1 - 2 puffs IH Q6HP PRN PRN Reason: SHORTNESS OF AIR Discontinued Amoxicillin/Potassium Clav [Augmentin 875-125 Tablet] 1 tab PO Q12H Azithromycin [Zithromax 250mg tab] 250 mg PO DIRECTED
--- NOTE | 2019-05-08 08:26 | Progress Note ---
Internal Medicine - PN: Subj *Date: 05/08/19 *Time: 08:26 Exam Vital signs and Labs for Last 24 Hours: Temp Pulse Resp BP Pulse Ox 97.7 F 60 18 136/79 95 05/08/19 08:00 05/08/19 08:00 05/08/19 08:00 05/08/19 08:00 05/08/19 08:00 Laboratory Results - last 24 hr 05/08/19 06:00: WBC 7.0, RBC 3.69 L, Hgb 11.8 L, Hct 36.0 L, MCV 97.6 H, MCH 31.9 H, MCHC 32.7, RDW 14.6, Plt Count 370, MPV 6.9 L, Neut % (Auto) 57.9, Lymph % (Auto) 26.3, [place] % (Auto) 7.2, Eos % (Auto) 7.4, Baso % (Auto) 1.3, Neut # (Auto) 4.0, Lymph # (Auto) 1.8, [place] # (Auto) 0.5, Eos # (Auto) 0.5 H, Baso # (Auto) 0.1 05/08/19 06:00: Sodium 140, Potassium 3.6, Chloride 105, Carbon Dioxide 25, Anion Gap 13.6, BUN 7, Creatinine 1.31 H, Estimated Creat Clear 58, Estimated GFR 54 L, Est GFR ( Amer) 65, Glucose 91 D, Calcium 8.7, Total Bilirubin 1.1 H, AST 38 H D, ALT 80 H D, Alkaline Phosphatase 77, Total Protein 5.9 L, Albumin 2.6 L, Globulin 3.3 H, Albumin/Globulin Ratio 0.8 L I & O for Last 24 hours: Intake & Output 05/05/19 05/06/19 05/07/19 05/08/19 23:59 23:59 23:59 23:59 Intake Total 240 / 240 1607 / 1607 3019 / 3019 1194 / 1194 Balance 240 / 240 1607 / 1607 3019 / 3019 1194 / 1194 Weight 76.43 kg 77.111 kg 80.371 kg 79.095 kg Microbiology Reports for the Last 24 Hours: Microbiology 05/05/19 17:30 Blood Blood Culture - Preliminary NO GROWTH AFTER 48 HOURS 07/29/19 17:05 Blood Blood Culture - Preliminary NO GROWTH AFTER 48 HOURS 05/05/19 21:15 Sputum - Expectorated Sputum Gram Stain - Final 05/05/19 21:15 Sputum - Expectorated Sputum Sputum Culture - Preliminary Assessment and Plan (1) Immunodeficiency Current visit: Yes Status: Chronic Category: Medical Code(s): D84.9 - Immunodeficiency, unspecified (2) CAP (community acquired pneumonia) Current visit: No Status: Acute Qualifiers: Laterality: unspecified laterality Qualified Code(s): J18.9 - Pneumonia, unspecified organism Category: Medical Code(s): J18.9 - Pneumonia, unspecified organism (3) Renal insufficiency Current visit: No Status: Resolved Category: Medical Code(s): N28.9 - Disorder of kidney and ureter, unspecified (4) Hypoxia Current visit: Yes Status: Resolved Category: Medical Code(s): R09.02 - Hypoxemia The patient's infection will respond to the chosen ABx?: Yes Is the patient receiving the right drug, dose, and route?: Yes Could a more targeted ABx be ordered?: No (HOME ON AZITHROMYCIN AND OMNICEF)
--- NOTE | 2019-05-08 17:46 | Cardiology Report ---
PROCEDURE: 2-D M-mode and color Doppler study INDICATIONS FOR THE TEST: Chest pain COPD Heart Murmur Tobacco Smoking Palpitations Fatigue Syncope Edema Hypertension Diabetes Mellitus Rheumatic Fever SOB+YBARRA+Obesity Hyperlipidemia Family History HD Additional History pneumonia PATIENT INFORMATION HEIGHT: 68 WEIGHT: 170 GENDER: Male B/P: 121/58 2-D/M-MODE INTERPRETATION: 2-D MEASUREMENTS OBSERVED VALUES IN CMS Right Ventricular Dimension (RVDd) 2.5 Interventricular Septum (Thickness)(IVsd) 1.0 Left Ventricular Internal Dimensions(LVIDd) 4.8 Left Ventricular Posterior Wall (Thickness)(LVPWd) 1.0 Aortic Root 2.8 Aortic Cusp Separation 2.2 Left Atrial Dimensions (LAD) 2.8 2D 1. Left atrium is mildly enlarged, left ventricle is normal size, there is no concentric left ventricular hypertrophy, visually estimated ejection fraction 55% with no regional wall motion abnormality. 2. The right atrium and right ventricle are normal size and contractility. 3. The aortic valve is minimally thickened and calcified leaflet continue to display mobility. 4. The mitral and tricuspid valve leaflets are minimally thickened. 5. The pulmonic valve is poorly visualized. 6. No significant pericardial effusion noted. DOPPLER INTERROGATION: Doppler interrogation of the aortic, mitral and tricuspid valvular presence of mild aortic, mild mitral and tricuspid regurgitation, tricuspid regurgitation jet velocity is inadequate for calculation of the right ventricular systolic pressure, grade 1 diastolic dysfunction seen with tissue Doppler evidence of raised left atrial pressure. CONCLUSION: 1. Mildly enlarged left atrium, normal left ventricular size, visually estimated ejection fraction 55% with no regional wall motion abnormality, grade 1 diastolic dysfunction seen with tissue Doppler evidence of raised left atrial pressure. 2. Mild aortic, mild mitral and tricuspid regurgitation. 3. No significant pericardial effusion noted.
== END 2019-05-08 09:15 | disposition home or self-care (01) | DRG 195 ==
LOC: 2ND 15:02
PROVIDERS: ADMIT Internal Medicine Adolescent Medicine; ATTEND Internal Medicine Adolescent Medicine
CPT/HCPCS: 36415; 71020; 71046; 71275; 80048; 80053; 82803; 83605; 85025; 85378; 85651; 86140; 86738; 87040; 87070; 87077; 87205; 87275; 87276; 87278; 87486; 87581; 87633; 87798; 93005; 93306; 94760; 94761; 96365; 96375; 99284; J0456; J2405; J2543; Q9967

== ENCOUNTER → 2022-10-17 09:06 | Outpatient (CLI) | payer MEDICARE, OTHER, SELFPAY | PROVIDERS: PCP Nurse Practitioner Family; Visit Provider Nurse Practitioner Family | DX: J02.9 Acute pharyngitis, unspecified (principal) | CPT/HCPCS: C9803; U0003; U0005 ==

== ENCOUNTER 2024-08-23 17:09 | Emergency (ER) | payer MEDICARE, OTHER, SELFPAY ==
[2024-08-23 17:20] VITALS: BP 139/85; PULSE 103; RESP 22; TEMP 36.7; O2SAT 99; BMI 27.5
--- NOTE | 2024-08-23 17:30 | ED_ITS ---
Discharge Plan Disposition Patient Disposition: Home, Self-Care Condition: Good Prescriptions Prescriptions: New azithromycin [Zithromax] 250 mg tablet 250 mg PO UD DOSE PK Qty: 6 0RF Rx Instructions: Take two (2) tablets today, then one (1) tablet days #2 thru #5 benzonatate 100 mg capsule 100 mg PO TIDP PRN (Reason: Cough) Qty: 30 0RF No Action prednisone 2.5 mg tablet 10 mg PO DAILY omeprazole 40 mg capsule,delayed release(DR/EC) 40 mg PO DAILY amlodipine-olmesartan 10-20 mg tablet 1 tab PO DAILY Referrals Follow up/Referrals: Renee Cohen APRN [Primary Care Provider] - See instructions Activity Restrictions/Add. Instructions Additional Instructions/Restrictions: Drink plenty of fluids. Take tylenol or ibuprofen for pain or fever. Take the medications as directed. Follow up with your regular doctor. GO TO THE ER FOR ANY WORSENING SYMPTOMS Clinical Impressions Clinical Impression: Sinusitis, Acute viral syndrome Instructions Patient Instructions: Sinusitis, DI for Sinusitis Print Language Print Language: [place] Discharge ED Provider: Shaji Farris [facility] General Stated complaint: fever,body aches,cough Mode of Arrival: Ambulatory Source of Information: Patient and Spouse Limitations: No Limitations Time Seen by Provider: 08/23/24 17:30 Description of Symptoms (Recalled from Triage Doc. by RN): PATIENT C/O BODY ACHES, FEVER AND COUGH THAT STARTED THIS MORNING HEENT Symptoms (Recalled from RN notes): No Resp Symptoms (Recalled from RN notes): Yes Skin Symptoms (Recalled from RN notes): No MS Symptoms (Recalled from RN notes): No Functional Status (Recalled from RN notes): WNL History of Present Illness Provider Complaint: He states that for the past 2 days he has had chills, body aches, and sinus congestion. He denies chest congestion. He refused a chest x- ray. Related Data Home Medications ?Medication ?Instructions ?Recorded ?Confirmed prednisone 2.5 mg tablet 10 mg PO DAILY 10/17/22 08/23/24 amlodipine 10 mg-olmesartan 20 mg 1 tab PO DAILY 08/23/24 08/23/24 tablet omeprazole 40 mg capsule,delayed 40 mg PO DAILY 08/23/24 08/23/24 release Previous Rx's ?Medication ?Instructions ?Recorded azithromycin 250 mg tablet 250 mg PO UD DOSE PK #6 tabs 08/23/24 (Zithromax) benzonatate 100 mg capsule 100 mg PO TIDP PRN Cough #30 caps 08/23/24 Allergies Allergy/AdvReac Type Severity Reaction Status Date / Time tolmetin (From Tolectin) Allergy Unknown I-HIVES Verified 10/17/22 08:32 sulfasalazine Allergy Unknown Verified 08/23/24 17:30 allergy reaction methotrexate AdvReac Unknown Verified 08/23/24 17:30 allergy reaction Worker's Comp Is this a Worker's Comp case?: No [facility] Disclaimer: The information contained in this section may have been updated after the patient was seen, as this information can be updated by other users. Medical History (Updated 08/23/24 @ 17:52 by Shaji Farris APRN) Arthritis Hypertension Surgical History (Updated 08/23/24 @ 17:32 by Lisa Pritchard RN) History of tympanostomy tube placement Social History Smoking Status: Never smoker alcohol intake: never current occupational status: employed Travel in the last 8 weeks: None household members: spouse caffeine: Yes ROS Obtained: Yes All systems reviewed & no additional complaints except as documented Constitutional Constitutional: Reports chills and Reports fever(s) Eyes Eyes: Denies eye discharge ENT Ears, Nose, Mouth, and Throat: Reports as per HPI Cardiovascular Cardiovascular: Denies chest pain Respiratory Respiratory: Denies chest congestion and Reports cough Gastrointestinal Gastrointestingal: Reports nausea; Denies abdominal pain, constipation, cramping, diarrhea or vomiting Musculoskeletal Musculoskeletal: Denies arthralgias Integumentary/Breasts Skin/Breast: Denies rash Neurologic Neurologic: Denies paresthesias Physical Exam General General appearance: alert and in no apparent distress Eye Eye exam: Present normal appearance, PERRL and EOMI ENT ENT exam: Present mucous membranes moist and normal external ear exam Expanded ENT Exam External ear exam: Present normal external inspection TM/Canal exam: Bilateral TM: erythema and bulging Nose exam: Absent sinus tenderness Nasal speculum exam: Bilateral: normal Mouth exam: Present normal external inspection; Absent drooling Teeth exam: Present normal inspection Throat exam: Present tonsillar erythema and tonsillomegaly Neck Neck exam: Present normal inspection, full ROM and trachea midline; Absent tenderness, lymphadenopathy or thyromegaly Chest Chest inspection: Present normal inspection and symmetric chest wall rise; Absent tenderness or rash Respiratory Respiratory exam: Present normal lung sounds bilaterally; Absent respiratory distress, wheezes, stridor or accessory muscle use Cardiovascular Cardiovascular exam: Present regular rate, normal rhythm and normal heart sounds Abdominal Exam Abdominal exam: Present soft; Absent distention, tenderness, guarding, rebound or rigidity Extremities Exam Extremities exam: Present normal inspection, full ROM and normal capillary refill; Absent tenderness or calf tenderness Back Exam Back exam: Present normal inspection and full ROM; Absent tenderness Neurological Exam Neurological exam: Present alert and oriented X3 Psychiatric Psychiatric exam: Present normal affect and normal mood Skin Skin exam: Present warm, dry, intact and normal color Lymphatic Lymphatic Findings: no adenopathy Medical Decision Making Medical Records Medical records reviewed: No I reviewed the patient's medical records. Screening: Per USPSTF and CDC recommendations, given the prevalence of disease in our region, it is our hospital?s policy to screen for HIV and viral Hepatitis for all patients aged 18 and over and those with ongoing risk factors. John Inquiry Pt receiving controlled substance: No Vital Signs: 08/23/24 17:20 Temperature 98.0 F Temperature Source Oral Pulse Rate [Left Brachial] 103 H Respiratory Rate 22 Blood Pressure [Left Arm] 139/85 Blood Pressure Mean [Left Arm] 103 Blood Pressure Source [Left Arm] Automatic Cuff Blood Pressure Position [Left Arm] Sitting 02 Sat by Pulse Oximetry 99 Oxygen Delivery Method Room Air Lab Data Lab results reviewed: Yes I reviewed the patient's lab results.
[2024-08-23 17:40] LABS: UTC Influenza A Antigen Negative (Negative); UTC Influenza B Antigen Negative (Negative)
[2024-08-23 17:57] VITALS: BP 139/85; PULSE 103; RESP 22; TEMP 36.7; O2SAT 99
[2024-08-23] MEDS: AZITHROMYCIN 250MG TABLET 500 MG PO (17:59)
[2024-08-23 18:06] LABS: Influenza A, PCR Not Detected (NotDetected); Influenza B, PCR Not Detected (NotDetected)
[2024-08-23 18:28] LABS: Coronavirus 19, PCR Detected (NotDetected)
--- NOTE | 2024-08-23 18:58 | PC.NURSE ---
PATIENT NOTIFIED OF POSITIVE COVID TEST AT THIS TIME. PATIENT ADVISED TO INCREASE FLUIDS AND REST AND FOLLOW-UP WITH PCP
== END 2024-08-23 18:00 | disposition home or self-care (01) ==
PROVIDERS: Emergency Provider Nurse Practitioner Family; PCP Nurse Practitioner Family
DX: J01.90 Acute sinusitis, unspecified (principal); B34.9 Viral infection, unspecified
CPT/HCPCS: 87636; 87804; 99213; G0381

== ENCOUNTER 2025-06-24 10:43 | Outpatient (CLI) | payer MEDICARE, OTHER, SELFPAY ==
--- NOTE | 2025-06-24 | CA_ITS ---
APPROVED REPORT Exam: Exercise Treadmill Technologist: Juliet Patel Stress Nurse: Rachna Dang Ht: 5 ft 8 in Wt: 180 lbs BSA: 1.95 m2 HR: 55 bpm BP: 183/91 mmHg Stress Test Details Test: Exercise stress testing was performed using a Samy protocol. HR Resting HR: 55 bpm Max Heart Rate (APMHR): 143.355129 bpm Max HR Achieved: 132 bpm Target HR (85% APMHR): 121.360721 bpm % of APMHR: 92.31 Recovery HR: 85 bpm BP Resting BP: 183.0/91.0 mmHg Max BP: 205.0/109.0 mmHg Recovery BP: 164.0/90.0 mmHg ECG Stress ECG Conclusion Lungs CTA Injected at 2 minutes target heart race achieved. Test stopped due to dyspnea. Symptoms: Dyspnea Arrhythmias/Ectopy: PVC/ventricular couplets ST-T Changes: Less than 0.[address] segment changes. Conclusion: Quiros treadmill score +3. Decrease functional capacity. Hypertensive response to exercise. Electronically signed by : Ericka Brothers MD 06/27/2025 22:45:40
--- NOTE | 2025-06-24 | CA_ITS ---
APPROVED REPORT EXAM: Comprehensive 2D, Doppler, and color-flow Echocardiogram In Home Aide: NBA Coker, RVS Ht: 5 ft 8 in Wt: 170lbs BSA: 1.91 BP: 121/58 mmHg Indications: YBARRA, Fatigue, HTN, Edema, Murmur Echo Enhancing Agent Comments: TDS: poor acoutic windows throughout exam. 2D Dimensions IVSd 1.34 cm LVEF (Visual) 64.70 % PWd 1.42 cm LA Volume 37.00 mL LVDd 3.69 cm LA Volume Index 19.460124 mL/m2 (M/F) 16-34 LVDs 2.41 cm Left Atrium 3.12 cm Ascending Aorta 3.25 cm M-Mode Dimensions RVDd 1.57 cm (0.9-2.6) LA Diam 3.28 cm (1.9-4.0) LVDd 4.80 cm (3.5-5.7) LVDs 3.83 cm (3.5-5.7) IVSd 1.17 cm (0.6-1.1) PWd 1.29 cm (0.6-1.1) EF (Teich) 41.30% EPSs 0.85 cm FS 20.20% EDV (Teich) 107.50 mL TAPSE 2.09 (<1.7) ESV (Teich) 63.10 mL LV Diastology E Decel Time 303 (160-240 msec) MED A' 9.90 cm/s LAT A' 13.30 cm/s Aortic Valve AoV Peak Armando. 131.0 (50-130 cm/s) AI PHT 663.00 ms AO Peak GR. 6.80 mmHg AO Mean GR. 3.40 (<5 mmHg) AO VTI 27.3 (18-25 cm) YEE (VTI) 1.88 (2.5-4.5 cm2) Mitral Valve MV E Max Armando. 53.0 (40-130 cm/s) MV PHT 89.0 ms Pulmonary Valve PV Peak Velocity 79.0 (50-150 cm/s) Left Ventricle The left ventricle is normal size. Left ventricular systolic function is normal. The left ventricular ejection fraction is within the normal range. There is increased left ventricular wall thickness. There is normal LV segmental wall motion. Transmitral Doppler flow pattern suggests impaired LV relaxation. LVEF is 60%. Right Ventricle The right ventricle is normal size. The right ventricular systolic function is normal. Atria The left atrium is mildly dilated. The right atrium size is normal. There is no color Doppler evidence of interatrial shunt. Aortic Valve The aortic valve is mildly thickened. There is no hemodynamically significant aortic valvular stenosis. Mild aortic regurgitation is present. Mitral Valve The mitral valve is normal in structure. No evidence of mitral valve stenosis. Trace mitral regurgitation is present. Tricuspid Valve The tricuspid valve leaflets are thin and pliable. Trace tricuspid regurgitation. There is insufficient TR jet to estimate RVSP. Pulmonic Valve The pulmonary valve is grossly normal in structure. Trace pulmonic valve regurgitation is present. Great Vessels The aortic root is normal in size. IVC is normal in size and collapses >50% with inspiration. Pericardium There is no pericardial effusion. Other Information Study Quality: Technically Difficult Conclusion Normal biventricular systolic function. Mild LA dilation. Mild AI. Electronically signed by : Ericka Brothers MD 06/28/2025 16:19:08
--- NOTE | 2025-06-24 11:32 | NM_ITS ---
APPROVED REPORT Exam: Nuclear Stress Test Indication: soa..fatigue Patient Location: Outpatient Stress Tech: Juliet Patel NC Tech:ERWNI Eason RT(R)(N) Ht: 5 ft 8 in Wt: 180 lbs HR: 62 bpm BP: 182/92 mmHg BSA: 1.95 m2 TID: 1.00 BMI: 27.3 Procedure: Patient exercised on Samy protocol 3:04 minutes and sec, resting heart rate 62 bpm, resting blood pressure 182/92 mmHg, with exercise maximum heart rate achived was 132 bpm which is 92 % of the maximum predicted heart rate and blood pressure was 205/109 mmHg. Test was stopped due to fatigue. Patient denied any complaint of chest pain. Patient has fair exercise capacity, achieved 4.7 METs of workload on treadmill, the blood pressure response to exercise was exaggerated. Cardiac Stress and Resting SPECT Images: Cardiac Stress and Resting SPECT images were obtained using technetium 99m Myoview 30.9 mCi stress and 10.98 mCi at rest. Right images demonstrate significant soft tissue overlap of the cardiac borders. This may affect diagnostic interpretation of the study findings. Resting and stress imaging in supine positions demonstrate a medium sized, moderate, fixed perfusion defect in the anterior LV wall. This is no longer visualized with prone stress imaging. Findings are suggestive of soft tissue attenuation. Gated imaging demonstrates normal global and regional LV systolic function. LVEF is calculated at 60%. Conclusion: Technically difficult study. Soft tissue attenuation is present. No evidence of fixed or reversible perfusion defects. Gated imaging demonstrates normal global and regional LV systolic function. LVEF is calculated at 60%. Of note, the patient had an exaggerated BP response to exercise (BP 205/109 mmHg). Further BP control is recommended. Electronically signed by : Ericka Brothers MD 06/27/2025 22:36:02
[2025-06-24 13:30] VITALS: BP 164/90; BP 205/109; PULSE 85; RESP 16
[2025-06-24] MEDS: ISOTOPE MYOVIEW (PER STUDY) 1 DOSE IV (14:00)
[2025-06-24] MEDS: SODIUM CHLORIDE 0.9% 10ML SYR (RAD ONLY) 10 ML IV ×2 (14:01)
== END 2025-06-24 23:59 | disposition home or self-care (01) ==
PROVIDERS: PCP Internal Medicine Adolescent Medicine; Visit Provider Internal Medicine Adolescent Medicine
DX: I35.1 Nonrheumatic aortic (valve) insufficiency (principal); I11.9 Hypertensive heart disease without heart failure; I49.3 Ventricular premature depolarization; R94.31 Abnormal electrocardiogram [ECG] [EKG]
CPT/HCPCS: 78452; 93017; 93018; 93306; A9502

== ENCOUNTER 2025-08-05 12:21 | Outpatient (CLI) | payer MEDICARE, OTHER, SELFPAY ==
--- NOTE | 2025-08-05 12:25 | XR_ITS ---
FINAL REPORT CLINICAL HISTORY: knee pain from injury yesterday COMPARISON: None FINDINGS: LEFT KNEE 3 views of the left knee were obtained. There is no acute fracture or dislocation. There is advanced medial compartment joint space narrowing. A small joint effusion is noted. IMPRESSION: Small joint effusion without acute bony abnormality. Reviewed, Interpreted and Dictated by Papi Mcgovern MD Transcribed by Shanna Garzon Authenticated and [facility]
--- OUTSIDE RECORDS SUMMARY | 2025-08-05 12:25 | XMS_ITS | Data Portability ---
Author Organization [facility] [place] LISA Cadena BUHL CLOSED Address [address] [place] [address] Care Team Providers Care Imaging Aide Name Role Phone ALAYNA NUÑEZ Primary Care Provider Assessment No assessment recorded. Plan of Treatment Reminders Order Date Submit Date Provider Last Modified By Organization Details Last Modified Time Details Appointments RHEUM RECHECK 2025 04:00P M KYRA OLVERA MD Not available Not available Not available Lab C reactive protein, QN, serum or plasma 2023 024 [facility], [address] [place] [address], [id number], 06/02/2024 08:08:52 C reactive protein, QN, serum or plasma 2023 024 [facility], [address] [place] [address], [id number], 11/20/2023 17:40:07 CBC w/ auto diff 2023 024 [facility], [address] [place] [address], [id number], 11/20/2023 16:55:24 creatini ne, serum or plasma 2023 024 [facility], [address] [place] [address], [id number], 11/20/2023 17:40:05 ALT (alanine aminotra nsferase ), serum or plasma 2023 024 [facility], [address] [place] [address], [id number], 11/20/2023 17:40:11 AST/SGOT (asparta te aminotra nsferase ), serum or plasma 2023 024 [facility], [address] [place] [address], [id number], 11/20/2023 17:40:09 ESR (erythro cyte sediment ation rate), blood 2023 024 [facility], [address] [place] [address], [id number], 11/20/2023 20:09:45 CBC w/ auto diff 2021 022 [facility], [address] [place] [address], [id number], 08/18/2022 10:38:30 CMP, serum or plasma 2021 022 [facility], [address] [place] [address], [id number], 08/18/2022 11:07:58 Referral None recorded . Procedures None recorded . Surgeries None recorded . Imaging XR, ribs, unilater al, 3 or more view - left posterio r ribs; hit against a fence post running from a cow 2022 023 [facility], [address] [place] [address], [id number], 02/16/2023 13:36:38 Medication Orders predniso ne 5 mg tablet 2024 025 [id number], [address], [id number], 11/26/2024 14:00:13 predniso ne 2.5 mg tablet 2024 025 [facility] [address]29 [facility] [address], [place], [phone], 11/26/2024 14:00:15 predniso ne 5 mg tablet 2023 024 [facility] [address] [facility] [address], [place], [id number], 05/26/2024 10:52:44 predniso ne 2.5 mg tablet 2023 024 [facility], 629 [facility] [address], [place], [id number], 05/26/2024 10:52:44 predniso ne 5 mg tablet 2023 024 [facility], [address] [place] [address] [address], [place], [id number], 11/20/2023 15:53:09 predniso ne 2.5 mg tablet 2023 024 [facility], [address] [place] [address] [address], [place], [id number], 11/20/2023 15:53:08 predniso ne 5 mg tablet 2022 023 [facility], 629 [facility] [address], [place], [id number], 02/16/2023 10:14:06 predniso ne 2.5 mg tablet 2022 023 [facility], 629 [facility] [address], [place], [id number], 02/16/2023 10:14:05 predniso ne 5 mg tablet 2021 022 [facility] #, 629 [facility] [address] [place], [id number], 08/18/2022 09:39:48 predniso ne 2.5 mg tablet 2021 022 [facility][id number], 075 [facility] [address] [place] [place], [id number], 08/18/2022 09:39:48 Patient TargetsNo targets recorded. Patient Instructions Encounter Date Encounter Id Patient Instructions Last Modified By Organization Details Last Modified Time 05/26/2024 [id number] medical record request* - last labs please Not available 06/02/2024 08:08:47 11/26/2024 [id number] medical record request* - last labs with Munira Nuñez Not available 12/03/2024 08:17:35 Reason for Referral None Reported. Results Created Date Observation Date Name Description Value Unit Range Abnormal Flag Note LastModifiedBy Organization Detail LastModifiedTime 08/18/20 22 08/18/2022 COMPL ETE BLOOD COUNT white blood cells 11.3 K/uL 3.8-10 .8 high Not Available [facility] [address] [place] [address], [id number], 08/18/2022 10:38:30 08/18/20 22 08/18/2022 COMPL ETE BLOOD COUNT red blood cells 4.69 M/uL 4.20-5 .80 normal Not Available [facility] [place], [address], 08/18/2022 10:38:30 08/18/20 22 08/18/2022 COMPL ETE BLOOD COUNT hemoglobin 16.0 g/dL 14.0-1 8.0 normal Not Available [facility] [address] [place] [address], [id number], 08/18/2022 10:38:30 08/18/20 22 08/18/2022 COMPL ETE BLOOD COUNT hematocrit 46.1 % 40.0-5 2.0 normal Not Available [facility] [address] [place] [address], [address], 08/18/2022 10:38:30 08/18/20 22 08/18/2022 COMPL ETE BLOOD COUNT MCV 98 fL 80-100 normal Not Available [facility] [address] [place] [address], [address], 08/18/2022 10:38:30 08/18/20 22 08/18/2022 COMPL ETE BLOOD COUNT MCH 34 pg 26-35 normal Not Available [facility] [address] [place] [address], [address], 08/18/2022 10:38:30 08/18/20 22 08/18/2022 COMPL ETE BLOOD COUNT MCHC 35 g/dL 32-36 normal Not Available [facility] [address] [place] [address], [address], 08/18/2022 10:38:30 08/18/20 22 08/18/2022 COMPL ETE BLOOD COUNT RDW 12.3 % 11.0-1 5.0 normal Not Available [facility] [address] [place] [address], [address], 08/18/2022 10:38:30 08/18/20 22 08/18/2022 COMPL ETE BLOOD COUNT MPV 7.6 fL 6.2-10 .5 normal Not Available [facility] [address] [place] [address], [address], 08/18/2022 10:38:30 08/18/20 22 08/18/2022 COMPL ETE BLOOD COUNT platelet count 268 K/uL 130-40 0 normal Not Available [facility] [address] [place] [address], [address], 08/18/2022 10:38:30 08/18/20 22 08/18/2022 COMPL ETE BLOOD COUNT neutrophil,a bsolute 9.1 K/uL 1.6-8. 4 high Not Available [facility] [address] [place] [address], [address], 08/18/2022 10:38:30 08/18/20 22 08/18/2022 COMPL ETE BLOOD COUNT lymphocyte,a bsolute 1.3 K/uL 0.4-5. 1 normal Not Available [facility] [address] [place] [address], [address], 08/18/2022 10:38:30 08/18/20 22 08/18/2022 COMPL ETE BLOOD COUNT monocyte,abs olute 0.9 K/uL 0.0-1. 2 normal Not Available [facility] [address] [place] [address], [phone], 08/18/2022 10:38:30 08/18/20 22 08/18/2022 COMPL ETE BLOOD COUNT eosinophil,a bsolute 0.0 K/uL 0.0-0. 8 normal Not Available [facility] [address] [place] [address], [address], 08/18/2022 10:38:30 08/18/20 22 08/18/2022 COMPL ETE BLOOD COUNT basophil,abs olute 0.1 K/uL 0.0-0. 3 normal Not Available [facility] [address] [place] [address], [address], 08/18/2022 10:38:30 08/18/20 22 08/18/2022 COMPL ETE BLOOD COUNT % neutrophils 79.9 % 42.0-7 8.0 high Not Available [facility] [address] [place] [address], [address], 08/18/2022 10:38:30 08/18/20 22 08/18/2022 COMPL ETE BLOOD COUNT % lymphocytes 11.1 % 11.0-4 7.0 normal Not Available [facility] [address] [place] [address], [address], 08/18/2022 10:38:30 08/18/20 22 08/18/2022 COMPL ETE BLOOD COUNT % monocytes 7.9 % 0.0-11 .0 normal Not Available [facility] [address] [place] [address], [address], 08/18/2022 10:38:30 08/18/20 22 08/18/2022 COMPL ETE BLOOD COUNT % eosinophils 0.2 % 0.0-7. 0 normal Not Available [facility] [address] [place] [address], [address], 08/18/2022 10:38:30 08/18/20 22 08/18/2022 COMPL ETE BLOOD COUNT % basophils 0.9 % 0.0-3. 0 normal Not Available [facility] [address] [place] [address], [address], 08/18/2022 10:38:30 08/18/20 22 08/18/2022 COMPL ETE BLOOD COUNT nucleated red cells 0.0 % 0.0-0. 9 normal Not Available [facility] [address] [place] [address], [address], 08/18/2022 10:38:30 08/18/20 22 08/18/2022 COMPL ETE BLOOD COUNT nucleated RBCs, absolute 0.00 K/uL not estab. normal Not Available [facility] [address] [place] [address], [address], 08/18/2022 10:38:30 08/18/20 22 08/18/2022 COMP. METAB OLIC PANEL glucose 102 mg/dL 74-100 high Not Available [facility] [address] [place] [address], [address], 08/18/2022 11:07:58 08/18/20 22 08/18/2022 COMP. METAB OLIC PANEL blood urea nitrogen 18 mg/dL 6-20 normal Not Available [facility] [address] [place] [address], [address], 08/18/2022 11:07:58 08/18/20 22 08/18/2022 COMP. METAB OLIC PANEL creatinine 1.20 mg/dL 0.70-1 .28 normal Not Available [facility] [address] [place] [address], [address], 08/18/2022 11:07:58 08/18/20 22 08/18/2022 COMP. METAB OLIC PANEL BUN/creatini ne ratio 15 (calc ) 10-20 normal Not Available [facility] [address] [place] [address], [address], 08/18/2022 11:07:58 08/18/20 22 08/18/2022 COMP. METAB OLIC PANEL sodium 139 mmol/ L 136-14 5 normal Not Available [facility] [address] [place] [address], [address], 08/18/2022 11:07:58 08/18/20 22 08/18/2022 COMP. METAB OLIC PANEL potassium 4.7 mmol/ L 3.4-5. 0 normal Not Available [facility] [address] [place] [address], [address], 08/18/2022 11:07:58 08/18/20 22 08/18/2022 COMP. METAB OLIC PANEL chloride 102 mmol/ L 98-107 normal Not Available [facility] [address] [place] [address], [address], 08/18/2022 11:07:58 08/18/20 22 08/18/2022 COMP. METAB OLIC PANEL carbon dioxide 27 mmol/ L 22-31 normal Not Available [facility] [address] [place] [address], [address], 08/18/2022 11:07:58 08/18/20 22 08/18/2022 COMP. METAB OLIC PANEL anion gap 10 (calc ) 7-25 normal Not Available [facility] [address] [place] [address], [address], 08/18/2022 11:07:58 08/18/20 22 08/18/2022 COMP. METAB OLIC PANEL calcium 9.8 mg/dL 8.6-10 .2 normal Not Available [facility] [address] [place] [address], [address], 08/18/2022 11:07:58 08/18/20 22 08/18/2022 COMP. METAB OLIC PANEL total protein 6.8 g/dL 6.4-8. 3 normal Not Available [facility] [address] [place] [address], [address], 08/18/2022 11:07:58 08/18/20 22 08/18/2022 COMP. METAB OLIC PANEL albumin 4.5 g/dL 3.5-5. 2 normal Not Available [facility] [address] [place] [address], [address], 08/18/2022 11:07:58 08/18/20 22 08/18/2022 COMP. METAB OLIC PANEL globulin 2.3 g/dL_ (calc ) 1.5-4. 5 normal Not Available [facility] [address] [place] [address], [address], 08/18/2022 11:07:58 08/18/20 22 08/18/2022 COMP. METAB OLIC PANEL albumin/glob ulin ratio 2.0 (calc ) 1.1-2. 5 normal Not Available [facility] [address] [place] [address], [address], 08/18/2022 11:07:58 08/18/20 22 08/18/2022 COMP. METAB OLIC PANEL bilirubin, total 2.1 mg/dL 0.1-1. 2 high Pleas e call the Lab withi n 24 hrs at 258-4 150 if fract ionat ed Bilir ubin is tila ed. Not Available [facility] [address] [place] [address], [address], 08/18/2022 11:07:58 08/18/20 22 08/18/2022 COMP. METAB OLIC PANEL alkaline phosphatase 71 U/L 40-129 normal Not Available [facility] [address] [place] [address], [address], 08/18/2022 11:07:58 08/18/20 22 08/18/2022 COMP. METAB OLIC PANEL AST 29 U/L 0-40 normal Not Available [facility] [address] [place] [address], [address], 08/18/2022 11:07:58 08/18/20 22 08/18/2022 COMP. METAB OLIC PANEL ALT 31 U/L 0-41 normal Not Available [facility] [address] [place], [address], 08/18/2022 11:07:58 08/18/20 22 08/18/2022 COMP. METAB OLIC PANEL GFR 63 >= 60 normal NOT E New calcu latio n for GFR (CKD- EPI 2020) is formu lated witho ut race adjus tment facto rs at the recom menda tion of the [employer] at[employer] and Melissa [employer] ty of Nephr ology . This calcu latio n has not been valid ated in pregn ant women . For pedia tric patie nts refer to https ://giuliano renee.magaly partida.o rg/pr rose marie desai s/KDO QI/gf r_cal culat orPed Not Available [facility] [address] [place] [address], [address], 08/18/2022 11:07:58 08/18/20 22 08/18/2022 ESR, AUTOM ATED ESR, automated 4 mm 0-19 normal Not Available [facility] [address] [place], [address], 08/18/2022 12:58:49 11/20/19 24 11/20/2023 COMPL ETE BLOOD COUNT white blood cells 11.4 10*3/ uL 3.8-10 .8 high Not Available [facility] [address] [place] [address], [address], 11/20/2023 16:55:24 11/20/19 24 11/20/2023 COMPL ETE BLOOD COUNT red blood cells 4.75 10*6/ uL 4.20-5 .80 normal Not Available [facility] [address] [place] [address], [address], 11/20/2023 16:55:24 11/20/19 24 11/20/2023 COMPL ETE BLOOD COUNT hemoglobin 15.9 g/dL 14.0-1 8.0 normal Not Available [facility] [address] [place] [address], [address], 11/20/2023 16:55:24 11/20/19 24 11/20/2023 COMPL ETE BLOOD COUNT hematocrit 46.2 % 40.0-5 2.0 normal Not Available [facility] [address] [place] [address], [address], 11/20/2023 16:55:24 11/20/19 24 11/20/2023 COMPL ETE BLOOD COUNT MCV 97 fL 80-100 normal Not Available [facility] [address] [place] [address], [address], 11/20/2023 16:55:24 11/20/19 24 11/20/2023 COMPL ETE BLOOD COUNT MCH 33 pg 26-35 normal Not Available [facility] [address] [place] [address], [address], 11/20/2023 16:55:24 11/20/19 24 11/20/2023 COMPL ETE BLOOD COUNT MCHC 34 g/dL 32-36 normal Not Available [facility] [address] [place] [address], [address], 11/20/2023 16:55:24 11/20/19 24 11/20/2023 COMPL ETE BLOOD COUNT RDW 12.5 % 11.0-1 5.0 normal Not Available [facility] [address] [place] [address], [address], 11/20/2023 16:55:24 11/20/19 24 11/20/2023 COMPL ETE BLOOD COUNT MPV 7.8 fL 6.2-10 .5 normal Not Available [facility] [address] [place] [address], [address], 11/20/2023 16:55:24 11/20/19 24 11/20/2023 COMPL ETE BLOOD COUNT platelet count 292 10*3/ uL 150-40 0 normal Not Available [facility] [address] [place] [address], [address], 11/20/2023 16:55:24 11/20/19 24 11/20/2023 COMPL ETE BLOOD COUNT neutrophil,a bsolute 8.9 10*3/ uL 1.6-8. 4 high Not Available [facility] [address] [place] [address], [address], 11/20/2023 16:55:24 11/20/19 24 11/20/2023 COMPL ETE BLOOD COUNT lymphocyte,a bsolute 1.7 10*3/ uL 0.4-5. 1 normal Not Available [facility] [address] [place] [address], [address], 11/20/2023 16:55:24 11/20/19 24 11/20/2023 COMPL ETE BLOOD COUNT monocyte,abs olute 0.7 10*3/ uL 0.0-1. 2 normal Not Available [facility] [address] [place] [address], [address], 11/20/2023 16:55:24 11/20/19 24 11/20/2023 COMPL ETE BLOOD COUNT eosinophil,a bsolute 0.0 10*3/ uL 0.0-0. 8 normal Not Available [facility] [address] [place] [address], [address], 11/20/2023 16:55:24 11/20/19 24 11/20/2023 COMPL ETE BLOOD COUNT basophil,abs olute 0.1 10*3/ uL 0.0-0. 3 normal Not Available [facility] [address] [place] [address], [address], 11/20/2023 16:55:24 11/20/19 24 11/20/2023 COMPL ETE BLOOD COUNT % neutrophils 78.1 % 42.0-7 8.0 high Not Available [facility] [address] [place] [address], [address], 11/20/2023 16:55:24 11/20/19 24 11/20/2023 COMPL ETE BLOOD COUNT % lymphocytes 14.6 % 11.0-4 7.0 normal Not Available [facility] [address] [place] [address], [address], 11/20/2023 16:55:24 11/20/19 24 11/20/2023 COMPL ETE BLOOD COUNT % monocytes 6.4 % 0.0-11 .0 normal Not Available [facility] [address] [place] [address], [address], 11/20/2023 16:55:24 11/20/19 24 11/20/2023 COMPL ETE BLOOD COUNT % eosinophils 0.3 % 0.0-7. 0 normal Not Available [facility] [address] [place] [address], [address], 11/20/2023 16:55:24 11/20/19 24 11/20/2023 COMPL ETE BLOOD COUNT % basophils 0.6 % 0.0-3. 0 normal Not Available [facility] [address] [place] [address], [address], 11/20/2023 16:55:24 11/20/19 24 11/20/2023 COMPL ETE BLOOD COUNT nucleated red cells 0.1 % 0.0-0. 9 normal Not Available [facility] [address] [place] [address], [address], 11/20/2023 16:55:24 11/20/19 24 11/20/2023 COMPL ETE BLOOD COUNT nucleated RBCs, absolute 0.01 10*3/ uL not estab. normal Not Available [facility] [address] [place] [address], [address], 11/20/2023 16:55:24 11/20/19 24 11/20/2023 CREAT ININE creatinine 1.10 mg/dL 0.70-1 .28 normal Not Available [facility] [address] [place] [address], [address], 11/20/2023 17:40:05 11/20/19 24 11/20/2023 C REACT CHAGO PROTE IN C reactive protein 0.19 mg/dL 0.00-0 .49 normal Not Available [facility] [address] [place] [address], [address], 11/20/2023 17:40:07 11/20/19 24 11/20/2023 AST AST 23 U/L 0-40 normal Not Available [facility] [address] [place] [address], [address], 11/20/2023 17:40:09 11/20/19 24 11/20/2023 ALT ALT 28 U/L 0-41 normal Not Available [facility] [address] [place] [address], [address], 11/20/2023 17:40:11 11/20/19 24 11/20/2023 ESR, AUTOM ATED ESR, automated 7 mm 0-19 normal Not Available [facility] [address] [place] [address], [address], 11/20/2023 20:09:45 02/17/20 23 02/16/2023 XR, ribs, unila teral , 3 or more view [address] [address] [place] t Name: MARILEE roth : 948 Kassandra roth Orderi ng Provid er: DICK Burnett EXAM DATE: 2022 EXAM: XR LT RIBS/C HEST (PA/LA T) CLINIC AL INFORM ATION: Left rib pain. Injury one year ago. IMAGES PROVID ED: PA and latera l views of the chest with AP and both obliqu e views of the left ribs. BB marker is placed in the area of pain. COMPAR ALCIRA: None. FINDIN GS: Heart size is within normal limits . Lung prince are clear. Healin g fractu res of the left 10th and 11th ribs are seen. IMPRES CHANTAL: Uncomp licate d healin g fractu res of 10th and 11th ribs. Interp reted By: Emmie Blair MD [facility] Signed By: Emmie Blair MD on 023 1:31 PM [facility] [address], [address], 02/19/2023 11:58:04 Result Notes Documentation Provider Name and Address Organization Details Recorded Time Xr, Ribs, Unilateral, 3 Or More View : [address] [address] Patient Name: ALEXANDRE BALDWIN Patient : [id number] Patient Ordering Provider: RYANN ROLLINS EXAM DATE: 02/16/2023 EXAM: XR LT RIBS/CHEST (PA/LAT) CLINICAL INFORMATION: Left rib pain. Injury one year ago. IMAGES PROVIDED: PA and lateral views of the chest with AP and both oblique views of the left ribs. BB marker is placed in the area of pain. COMPARISON: None. FINDINGS: Heart size is within normal limits. Lung prince are clear. Healing fractures of the left 10th and 11th ribs are seen. IMPRESSION: Uncomplicated healing fractures of 10th and 11th ribs. Interpreted By: Zak Blair MD Adriana rea [facility] 02/19/2023 11:58:04 Problems No Known Problems Procedures Surgical History Date Name Laterality Status Provider Name and Address Organization Details Recorded Time 10/08/2010 Other completed [facility] 03/28/2019 11:56:53 10/08/1980 Other completed [facility] 03/28/2019 11:56:32 Imaging Results None recorded. Procedure Notes None recorded. Medical Equipment None Reported. Allergies Allergen ID Allergen Name Allergen Category Reaction Reaction Severity Criticality Documentation Date Start Date Code Code System Note Provider Name and Address Organization Details Recorded Time 002185 tolmetin sodium medicatio n Not available Not available Not available 09/01/20162011 81601 RxNorm Comme nt: Creat ed By: Shaggy mejiaCre ated Date: 2011 2:54: 35 PM; Not Available [facility] 6 05:59:51 127916 methotrex ate medicatio n hives Not available Not available 06/17/2019 6851 RxNorm RYANN ROLLINS, PAINT FORMULATOR [address] [place], [address] , [facility] 9 10:01:12 [id number] sulfasala zine medicatio n other severe high 08/18/2022 9524 RxNorm swoll en neck, ears plugg ed up, [facility] 09:18:42 Medications Name Sig Start Date Stop Date Status Note LastModified by Organization Details LastModified Time sulfasala zine 500 mg tablet Take 1 tablet twice a day by oral route. 05/26 completed Not Available Not Available Not Available meloxicam 15 mg tablet TAKE 1 TABLET BY MOUTH ONCE DAILY active Not Available Not Available No t Available Medrol (Arthur) 4 mg tablets in a dose pack Take 1 dose pk by oral route. 05/26 completed Not Available Not Available Not Available prednison e 5 mg tablet Take 1 tablet twice a day by oral route for 90 days. 2024 active Not Available Not Available Not Avai lable Zantac 300 mg tablet Take 1 tablet every day by oral route. 02/11 completed Not Available Not Available Not Available amlodipin e 5 mg tablet Take 1 tablet every day by oral route. 05/26 completed Not Available Not Available Not Available omeprazol e 40 mg capsule,d elayed release Take 1 capsule every day by oral route. 2023 active Not Available Not Available Not Avai lable methotrex ate sodium 2.5 mg tablet take 6 pills once weekly every week with the last meal of your day; 06/17 completed Not Available Not Available Not Available prednison e 2.5 mg tablet Take 1 tablet every day by oral route as needed. 2024 active Not Available Not Available Not Avai lable ibuprofen 200 mg tablet Take 3 tablets every day by oral route. 02/11 completed Not Available Not Available Not Available folic acid 1 mg tablet take one po daily except the day you take mtx 06/17 completed Not Available Not Available Not Available indometha jesus ER 75 mg capsule,e xtended release Two times a day 12/13 completed Frequenc y: bid;Medi cation Descript ion: indometh acin; Route:or al; refills: 11; Quantity :60 capsule, extended release Not Available Not Available Not Available Pepcid 02/11 completed Not Available Not Available Not Available amlodipin e 10 mg-olmesa rtan 20 mg tablet Take 1 tablet every day by oral route. active Not Available Not Available No t Available Vitals Date Recorded Body height Body mass index (BMI) Body weight Respiratory rate Heart rate Oxygen saturation Oxygen saturation in Arterial blood by Pulse oximetry Systolic And Diastolic Provider Name and Address Organization Details Last Updated DateTime 4 172.72 cm 28 kg/m2 31498.7 g 16 /min 54 /min 98 % 98 % 136/78 mm[Hg] [facility] 15:31:09 Date Recorded Body height Body mass index (BMI) Body weight Heart rate Oxygen saturation Oxygen saturation in Arterial blood by Pulse oximetry Systolic And Diastolic Provider Name and Address Organization Details Last Updated DateTime 5 172.72 cm 28.1 kg/m2 39450.5 9 g 75 /min 97 % 97 % 124/76 mm[Hg] Fabienne Rojo [facility] 5 13:22:28 Date Recorded Body height Body mass index (BMI) Body weight Heart rate Oxygen saturation Oxygen saturation in Arterial blood by Pulse oximetry Systolic And Diastolic Provider Name and Address Organization Details Last Updated DateTime 3 172.72 cm 27.7 kg/m2 42505.8 1 g 59 /min 99 % 99 % 140/84 mm[Hg] She Joyce [facility] 3 10:03:40 Date Recorded Body height Body mass index (BMI) Body weight Heart rate Oxygen saturation Oxygen saturation in Arterial blood by Pulse oximetry Systolic And Diastolic Provider Name and Address Organization Details Last Updated DateTime 4 172.72 cm 27.8 kg/m2 38419.4 g 60 /min 95 % 95 % 122/62 mm[Hg] Fabienne Rojo [facility] 4 10:28:38 Date Recorded Body height Body mass index (BMI) Body weight Heart rate Systolic And Diastolic Provider Name and Address Organization Details Last Updated DateTime 08/18/2022 172.72 cm 27.5 kg/m2 52515.22 g 64 /min 138/88 mm[Hg] She Joyce [facility] 08/18/2022 09:20:32 Social History Question Answer Notes LastModified by [employer] Details LastModified Time Tobacco Smoking Status Never [facility]oker [email or web address] 12/13/2018 12:52:59 How Much Tobacco Do You Chew? None [email or web address] Information not available 03/28/2019 What Was The Date Of Your Most Recent Tobacco Screening? 11/26/2024 [email or web address] Information not available 11/26/2024 How Much Tobacco Do You Smoke? No [email or web address] Information not available 12/13/2018 On What Date Was Tobacco Cessation Counseling Provided? 02/11/2021 [email or web address] Information not available 02/11/2021 How Many Years Have You Smoked Tobacco? 0 [email or web address] Information not available 03/28/2019 Have You Recently Traveled Abroad? No [email or web address] Information not available 08/18/2022 Sex: Unknown Functional Status Question Answer Note LastModified by [employer] Details LastModified Time Do you use any illicit or recreational drugs? No [email or web address] Information not available 08/18/2022 What is your level of alcohol consumption? Moderate [email or web address] Information not available 02/16/2023 Do you or have you ever used smokeless tobacco? Never used smokeless tobacco Information not available 06/17/2019 Do you or have you ever used e-cigarettes or vape? Never used electronic cigarettes Information not available 06/17/2019 Mental Status None recorded. Family History Relationship Description Onset Age of this Age Resolved Age Notes LastModified by Organization Details LastModified Time Maternal Grandfather Rheumatism Not available 12/13/2018 12:51:58 Medical History Condition Response Diabetes N Bleeding Disorder N Emphysema N Acid Reflux (GERD) Y Heart Disease N Rheumatoid Arthritis N Hypertension N COPD N Asthma N Past Encounters Encounter ID Performer Location Encounter Start Date Encounter Closed Date Diagnosis/Indication Diagnosis SNOMED-CT Code Diagnosis ICD10 Code Diagnosis IMO Codes Diagnosis Note [id number] RYANN ROLLINS APRN [facility] [address] [address] 12/13/2018 12:34:13 12/13/2018 13:24:28 Pain of multiple joints 28011651 M25.50 recurring and with bilateral hand pain, stiffness and with neck pain and stiffness bilateral knee pain and tenderness with synovitis in the bilateral mcps and bilateral wrists with family history of RA will obtain labs today start on prednisone trial and see if the symptoms are significan tly improved likely inflammato ry arthritis will assess outcome and make determinat ion after trial [id number] RYANN ROLLINS APRN [facility] [address] [address] 02/11/2019 09:26:17 02/12/2019 10:43:11 Pain of multiple joints 05100733 M25.50 Seronegati ve rheumatoid arthritis 333756858 M06.00 recurring and with bilateral hand pain, stiffness and with neck pain and stiffness bilateral knee pain and tenderness with synovitis in the bilateral mcps and bilateral wrists with family history of RA start on prednisone trial improved overall; will start on mtx folic acid and prednisone again [id number] RYANN ROLLINS APRN [facility] [address] [address] 03/28/2019 10:46:44 03/28/2019 12:18:22 Body mass index 25-29 - overweight 497191435 Z68.26 Seronegati ve rheumatoid arthritis 425995674 M06.00 recurring and with bilateral hand pain, stiffness and with neck pain and stiffness bilateral knee pain and tenderness with synovitis in the bilateral mcps and bilateral wrists with family history of RA continue with mtx folic acid will add meloxicam daily Long-term drug therapy 384744342 Z79.494 [id number] RYANN ROLLINS APRN [facility] [address] [address] 06/17/2019 08:57:47 06/19/2019 09:56:36 Seronegative rheumatoid arthritis 362164816 M06.00 recurring and with bilateral hand pain, stiffness and with neck pain and stiffness bilateral knee pain and tenderness with synovitis in the bilateral mcps and bilateral wrists; which has improved with family history of RA will remain off of all mtx and folic acid due to having hives, a rapid heart rate, bp dropped; urine was dark continue with meloxicam daily Body mass index 25-29 - overweight 667946016 Z68.26 [id number] RYANN ROLLINS APRN [facility] [address] [address] 10/29/2019 10:22:41 10/29/2019 11:46:20 Seronegative rheumatoid arthritis 461565758 M06.00 recurring and with bilateral hand pain, stiffness and with neck pain and stiffness bilateral knee pain and tenderness with synovitis in the bilateral mcps and bilateral wrists; which has improved, though now returned with family history of RA may be secondary to inflammato ry disease; will have him hold off on the meloxicam and will have him start on some prednisone once to tid prn for flares of RA Body mass index 25-29 - overweight 527038080 Z68.26 [id number] IVELISSE BOLES MD [facility] [address] [address] 02/02/2020 08:29:36 02/02/2020 15:50:36 Inflammatory polyarthropathy 622028239 M06.4 69-year-ol d gentleman with inflammato ry arthritis, undifferen tiated followed by Ryann Song. History of esophagiti s. Suggested to avoid all NSAIDs. Discontinu e meloxicam. Must avoid indomethac in. He can take low-dose prednisone at 2.5 mg twice a day with food. Follow-up in 3 months. [id number] RYANN ROLLINS APRN [facility] [address] [place] [place] [address] 02/11/2021 15:32:54 02/11/2021 16:13:41 Inflammatory polyarthropathy 848283186 M06.4 70-year-ol d gentleman with inflammato ry arthritis, undifferen tiated History of esophagiti s. Suggested to avoid all NSAIDs. Discontinu ed meloxicam. Must avoid indomethac in. He can take low-dose prednisone at 7.5 mg daily f/u in 3 months or sooner prn [id number] RYANN ROLLINS APRN [facility] [place] [address] 05/13/2021 10:09:20 05/13/2021 14:17:54 Inflammatory polyarthropathy 432949851 M06.4 71-year-ol d gentleman with inflammato ry arthritis, undifferen tiated History of esophagiti s. Suggested to avoid all NSAIDs. Discontinu ed meloxicam. Must avoid indomethac in. He can take low-dose prednisone at 7.5 mg daily f/u in 3 months or sooner prn Long-term drug therapy 018286734 Z79.548 [id number] RYANN ROLLINS [place]N [place] [address] 11/18/2021 14:54:49 11/18/2021 16:41:22 Inflammatory polyarthropathy 641620247 M06.4 71-year-ol d gentleman with inflammato ry arthritis, undifferen tiated History of esophagiti s. Suggested to avoid all NSAIDs. Discontinu ed meloxicam. Must avoid indomethac in. He can take low-dose prednisone at 7.5 mg daily f/u in 3 months or sooner prn Long-term drug therapy 181121018 Z79.899 [id number] RYANN ROLLINS [place] [address] 05/19/2022 09:17:29 05/19/2022 14:15:41 Inflammatory polyarthropathy 377872698 M06.4 72-year-ol d gentleman with inflammato ry arthritis, undifferen tiated History of esophagiti s. Suggested to avoid all NSAIDs. Discontinu ed meloxicam. Must avoid indomethac in. He can take low-dose prednisone at 10 mg dailyfaile d mtx due to hivesleflu nomide is expensive Long-term drug therapy 586612154 Z79.899 [id number] [place] [address] [place] [address] 08/18/2022 09:07:56 08/18/2022 16:50:49 Inflammatory polyarthropathy 497656735 M06.4 72-year-ol d gentleman with inflammato ry arthritis, undifferen tiated History of esophagiti s. Suggested to avoid all NSAIDs. Discontinu ed meloxicam. Must avoid indomethac in. He can take low-dose prednisone at 10 mg dailyfaile d mtx due to hivesleflu nomide is expensives ulfasalazi ne caused skin changes, and swelling in the lips Long-term drug therapy 141266886 Z79.899 no need for labs today [id number] RYANN ROLLINS APRN [facility] [address] [address] 02/16/2023 09:08:02 02/17/2023 04:26:05 Inflammatory polyarthropathy 297728104 M06.4 72-year-ol d gentleman with inflammato ry arthritis, undifferen tiated History of esophagiti s. Suggested to avoid all NSAIDs. Discontinu ed meloxicam. Must avoid indomethac in. He can take low-dose prednisone at 10 mg dailyfaile d mtx due to hivesleflu nomide is expensives ulfasalazi ne caused skin changes, and swelling in the lips Long-term drug therapy 405108354 Z79.899 no need for labs today Rib pain 081227858 R07.8 1 [id number] RYANN ROLLINS APRN [facility] [address] [address] 11/20/2023 14:46:05 11/21/2023 04:46:37 Inflammatory polyarthropathy [id number] M06.4 73-year-ol d gentleman with inflammato ry arthritis, undifferen tiated History of esophagiti s. Suggested to avoid all NSAIDs. Discontinu ed meloxicam. Must avoid indomethac in. He can take low-dose prednisone at 7.5 mg daily and can increase to 10 mg daily prnfailed mtx due to hivesleflu nomide is expensives ulfasalazi ne caused skin changes, and swelling in the lips Long-term drug therapy 524722066 Z79.899 no need for labs today [id number] [facility] [address] [place] [address] 05/26/2024 10:11:47 05/27/2024 04:28:28 Inflammatory polyarthropathy 144065338 M06.4 74-year-ol d gentleman with inflammato ry arthritis, undifferen tiated History of esophagiti s. Suggested to avoid all NSAIDs. Discontinu ed meloxicam. Must avoid indomethac in. He can take low-dose prednisone at 7.5 mg daily and can increase to 10 mg daily prnfailed mtx due to hivesleflu nomide is expensives ulfasalazi ne caused skin changes, and swelling in the lips Long-term drug therapy 252921652 Z79.899 no need for labs today [id number] [facility]INS [facility] [address] [place] [address] 11/26/2024 12:32:00 11/27/2024 04:26:24 Inflammatory polyarthropathy 895427918 M06.4 74-year-ol d gentleman with inflammato ry arthritis, undifferen tiated History of esophagiti s. Suggested to avoid all NSAIDs. Discontinu ed meloxicam. Must avoid indomethac in. He can take low-dose prednisone at 7.5 mg daily and can increase to 10 mg daily prnfailed mtx due to hivesleflu nomide is expensives ulfasalazi ne caused skin changes, and swelling in the lips Long-term drug therapy 776463942 Z79.899 no need for labs today Health Concerns Section Related Observation LastModified by Organization Detai ls LastModified Time None Recorded Concern Status LastModified by Organization Details LastModified Time None Recorded Advance Directives Directive None Recorded Payers Insurance Date Sequence Insurance Name Policy Number Policy Sosa Covered Member ID Sosa Member ID Guarantor Name 11/23/2024 1 [employer] (MEDICARE) Alexandre Baldwin [id number] Alexandre Baldwin 05/26/2024 2 [facility] Alexandre Baldwin [id number] Alexandre Baldwin 05/26/2024 2 [employer] (MEDICARE SUPPLEMENT) Alexandre Baldwin [id number] Alexandre Baldwin Notes Date Note Type Note Provider Name and Address Organization Details Recorded Time 08/18/2022 text/html ROS as noted in the HPI f/u on RA improved overall; he was on he suddenly improved and is off the mtx and the folic acid; he reports he has been doing well on only prednisone 7.5-10 mg daily, which seems to be helpful and the benefits of daily low dose prednisone outweighs the risk; he currently denies bowel or bladder changes, chest pain, shortness of air, rashes, fevers and all others are negative RYANN ROLLINS, NOMI [address] [place], [address], [facility] 08/18/2022 09:39:52 02/16/2023 text/html ROS as noted in the HPI f/u on RA improved overall; he was on he suddenly improved and is off the mtx and the folic acid; he reports he has been doing well on only prednisone 7.5 mg daily, which seems to be helpful and the benefits of daily low dose prednisone outweighs the risk; he currently denies bowel or bladder changes, chest pain, shortness of air, rashes, fevers and all others are negative RYANN ROLLINS APRN [address] [place], [address], [facility] 02/16/2023 10:14:19 11/20/2023 text/html ROS as noted in the HPI f/u on RA improved overall; he was on he suddenly improved and is off the mtx and the folic acid; he reports he has been doing well on only prednisone 7.5 mg daily, which seems to be helpful and the benefits of daily low dose prednisone outweighs the risk; he currently denies bowel or bladder changes, chest pain, shortness of air, rashes, fevers and all [place], [address], [facility] 11/20/2023 15:55:03 05/26/2024 text/html ROS as noted in the HPI f/u on RA improved overall; he was on he suddenly improved and is off the mtx and the folic acid; he reports he has been doing well on only prednisone 7.5 mg daily, which seems to be helpful and the benefits of daily low dose prednisone outweighs the risk; he is having increased reflux and has to decrease the prednisone at times; he currently denies bowel or bladder changes, chest pain, shortness of air, rashes, fevers and all others [place], [address], [facility] 05/26/2024 10:53:32 11/26/2024 text/html ROS as noted in the HPI f/u on RA improved overall; he was on he suddenly improved and is off the mtx and the folic acid; he reports he has been doing well on only prednisone 7.5 mg daily, which seems to be helpful and the benefits of daily low dose prednisone outweighs the risk; he is having increased reflux and has to decrease the prednisone at times; he currently denies bowel or bladder changes, chest pain, shortness of air, rashes, fevers and all others [place], [address], [facility] 11/26/2024 14:00:17
== END 2025-08-05 23:59 | disposition home or self-care (01) ==
LOC: RAD 12:23
PROVIDERS: PCP Internal Medicine Adolescent Medicine; Visit Provider Physician Assistant
DX: M25.462 Effusion, left knee (principal); M25.562 Pain in left knee
CPT/HCPCS: 73562